=== PATIENT | female | born 1945 | race African-American/Black ===

== ENCOUNTER → 2017-07-27 | Outpatient (CLI) | payer MEDICARE, MEDICAID ==
[~2017-07-27] MED LIST: ASPI81CH7 CHEW; DIGO0.25 PO; FURO1TAB60 PO; KLOR10TA PO; LANO0.2510 PO; LEVEMIR SQ; MAGICADU2 SWISH-SWAL; METF500 PO; METF500T PO; METO-309 PO; MIRTA15 PO; PANT20 PO; PERI8.6T PO; PLAV75TA29 PO; PRAV80TA2 PO; PRIN20TA2 PO; RISP1 PO; RISP2TAB37 PO; SHOWER/TUB CHAIR LG; WALKER ROLLING
[2017-07-27 07:50] LABS: HEMATOCRIT 36.7 % (35.0-46.0); MEAN CELL VOLUME 87.5 FL (80.0-100.0); MEAN CORPUSCULAR HEMOGLOBIN 28.7 PG (27.0-34.0); MEAN CORPUSCULAR HGB CONC 32.8 % (32.0-36.0); PLATELET COUNT 136 TH/MM3 (150-450); RED BLOOD COUNT 4.19 MIL/MM3 (4.00-5.30); RED CELL DISTRIBUTION WIDTH 15.4 % (11.6-17.2); REVIEW FLAG FINAL; WHITE BLOOD COUNT 5.6 TH/MM3 (4.0-11.0)
[2017-07-27 08:15] LABS: HDL CHOLESTEROL 48.2 MG/DL (40.0-60.0); LDL CHOLESTEROL 29 MG/DL (0-99)
[2017-07-27 16:55] LABS: HEMOGLOBIN A1b 2.4 %; HEMOGLOBIN Ao 81.4 %; HEMOGLOBIN LA1C 2.6 %; HEMOGLOBIN P3 4.1 %
== END ==
LOC: CLAB 07:01
PROVIDERS: ATTEND Internal Medicine Hematology & Oncology
DX: E11.8 Type 2 diabetes mellitus with unspecified complications (principal); I42.9 Cardiomyopathy, unspecified; R53.83 Other fatigue
CPT/HCPCS: 36415; 80061; 83036; 85027

== ENCOUNTER 2018-01-04 20:26 | Observation (INO) | payer MEDICARE, OTHER ==
[~2018-01-04] VITALS: Ht 162.6 cm; Wt 88.0 kg
[~2018-01-04 20:26] MED LIST changes: +BLOOD GLUCOSE M1 KIT; +BLOOD GLUCOSE T1 TES; -LANO0.2510 PO; -METF500 PO
[2018-01-04 20:31] VITALS: BP 190/51; PULSE 79; RESP 16; TEMP 98.8; O2SAT 98
[2018-01-04 21:00] VITALS: RESP 16; O2SAT 100
[2018-01-04 21:33] LABS: AUTOMATED NEUTROPHIL # 3.4 TH/MM3 (1.8-7.7); BASOPHIL # 0.1 TH/MM3 (0-0.2); BASOPHIL % 1.2 % (0.0-2.0); EOSINOPHIL # 0.1 TH/MM3 (0-0.4); EOSINOPHIL % 1.8 % (0.0-4.0); LYMPH % 37.4 % (9.0-44.0); LYMPHOCYTE # 2.4 TH/MM3 (1.0-4.8); MEAN CELL VOLUME 87.8 FL (80.0-100.0); MEAN CORPUSCULAR HEMOGLOBIN 28.3 PG (27.0-34.0); MEAN CORPUSCULAR HGB CONC 32.2 % (32.0-36.0); MEAN PLATELET VOLUME 10.1 FL (7.0-11.0); MONOCYTE # 0.5 TH/MM3 (0-0.9); NEUT % 52.6 % (16.0-70.0); PLATELET COUNT 157 TH/MM3 (150-450); RED BLOOD COUNT 3.88 MIL/MM3 (4.00-5.30); RED CELL DISTRIBUTION WIDTH 15.7 % (11.6-17.2); WHITE BLOOD COUNT 6.5 TH/MM3 (4.0-11.0)
--- NOTE | 2018-01-04 21:35 | RADRPT ---
EXAM DATE/TIME: 01/04/2018 21:19 [facility] COMPARISON: CT BRAIN W/O CONTRAST, May 13, 2016, 13:31. INDICATIONS : Cephalgia. RADIATION DOSE: 63.64 CTDIvol (mGy) MEDICAL HISTORY : Stroke. SURGICAL HISTORY : None. ENCOUNTER: Initial ACUITY: 1 day PAIN SCALE: 3/10 LOCATION: cranial TECHNIQUE: Multiple contiguous axial images were obtained of the head. Using automated exposure control and adj ustment of the mA and/or kV according to patient size, radiation dose was kept as low as reasonably a chievable to obtain optimal diagnostic quality images. DICOM format image data is available electro nically for review and comparison. FINDINGS: CEREBRUM: The ventricles are normal for age. No evidence of midline shift, mass lesion, hemorrhage or acute in farction. No change focal cortical calcification right high parietal lobe. No extra-axial fluid magy ections are seen. POSTERIOR FOSSA: The cerebellum and brainstem are intact. The 4th ventricle is midline. The cerebellopontine angle i s unremarkable. EXTRACRANIAL: Near-complete opacification of the visualized right maxillary sinus, not new. SKULL: The calvaria is intact. No evidence of skull fracture. CONCLUSION: No acute intracranial abnormality demonstrated. Persistent or recurrent right maxillary sinus disease . Jake Gomez MD on January 04, 2018 at 21:32 Board Certified Radiologist. This report was verified electronically.
[2018-01-04 21:45] LABS: PROTHROMBIN TIME - PATIENT 10.1 SEC (9.8-11.6)
--- NOTE | 2018-01-04 21:59 | PD ---
HPI Chief Complaint: Abdominal Pain Time Seen by Provider: 20:47 Travel History International Travel<30 days: No Contact w/Intl Traveler<30days: No Traveled to known affect area: No History of Present Illness HPI 72-year-old female that presents to the ED for evaluation of abdominal pain, right leg pain. Patient has been following her doctor secondary to loss of weight without trying. She apparently has lost about 70 pounds without trying. Unclear etiology as patient herself is a poor historian and per family she never complains of anything. Per family she did had a fall about a week ago and landed on her right hip. She has been having pain since which has been able to ambulate with some limp. She also has been complaining apparently for about 2 weeks of abdominal discomfort. She went to see her doctor who did a CT because of the loss of weight to make sure patient did not have a tumor going on and apparently the CT scan show gallbladder stones on the gallbladder. She states that currently she has no abdominal pain but the pain comes and goes and gets worse when she eats. She denies any urinary or bowel movement issues. She denies any pain at this time. Per patient the pain only comes and goes. Per patient becomes a sharp pain is 8 out of 10. Pain on the leg is only painful with weightbearing. She apparently has fallen and hit her ahead and she takes blood thinners. Unclear as to when this happened but apparently a week ago possibly a second time during the week. Denies any back pain or neck pain. No headache. No blurred vision or double vision. No other medical issues at this time. Lastly patient also as well as family complaint the patient has been having shortness of breath and exertion and apparently this has been ongoing for some time but has worsened the past couple of weeks. She apparently cannot do most of her daily activities secondary to the shortness of breath. She states that she gets chest pain on exacerbation only on occasion. She apparently has been told she has an enlarged heart which is never had any heart attacks or heart caths in the past. PFSH Past Medical History Hx Anticoagulant Therapy: Yes Arthritis: Yes (KNEE JOINTS) Asthma: No Autoimmune Disease: No Blood Disorders: No Anxiety: No Depression: Yes Heart Rhythm Problems: No High Cholesterol: Yes (TAKES ZOCOR) Chemotherapy: No Chest Pain: No Congestive Heart Failure: No COPD: No Cerebrovascular Accident: Yes (TIA) Coronary Artery Disease: Yes Diabetes: No (See EMR) Diminished Hearing: No Endocrine: No GERD: No Glaucoma: No Genitourinary: No Hepatitis: No Hiatal Hernia: No Hypertension: Yes Immune Disorder: No Kidney Stones: No Musculoskeletal: No Neurologic: No Psychiatric: Yes (history of Major Depression) Reproductive: No Respiratory: No Migraines: No Myocardial Infarction: No Radiation Therapy: No Renal Failure: No Sickle Cell Disease: No Sleep Apnea: No Thyroid Disease: No Ulcer: No Tetanus Vaccination: < 5 Years Influenza Vaccination: No LMP: menapause Menopausal: Yes Tubal Ligation: Yes Past Surgical History Abdominal Surgery: No AICD: No Appendectomy: No Arteriovenous Shunt: No Cardiac Surgery: No Cholecystectomy: No Ear Surgery: No Endocrine Surgery: No Eye Surgery: No Genitourinary Surgery: No Gynecologic Surgery: Yes (TUBAL LIGATION IN 1964) Insulin Pump: No Joint Replacement: No Oral Surgery: Yes (MOUTH SURGERY AT THE AGE OF 18) Pacemaker: No Thoracic Surgery: No Social History Alcohol Use: No Tobacco Use: No Substance Use: No Allergies-Medications (Allergen,Severity, Reaction): Coded Allergies: No Known Allergies (Verified Adverse Reaction, Unknown, 01/04/18) Reported Meds & Prescriptions Reported Meds & Active Scripts Active Blood Glucose Test Strips Strips Strip Ea .ROUTE DIRECTED Digoxin 0.25 Mg Tab 0.25 Mg PO DAILY Aspirin Children's (Aspirin) 81 Mg Chew 81 Mg CHEW DAILY Klor-Con 10 (Potassium Chloride) 10 Meq Tab 10 Meq PO DAILY Prinivil (Lisinopril) 20 Mg Tab 40 Mg PO DAILY Plavix (Clopidogrel Bisulfate) 75 Mg Tab 75 Mg PO DAILY Lopressor (Metoprolol Tartrate) 50 Mg Tab 50 Mg PO BID Levemir Inj (Insulin Detemir) 1,000 unit/ 10 ML Vial 5 Units SQ Q12HR Do not mix with any other Insulin. Lasix (Furosemide) 40 Mg Tab 40 Mg PO BID Pravastatin 80 Mg Tab 80 Mg PO HS Protonix (Pantoprazole Sodium) 20 Mg Tab 20 Mg PO DAILY Magic Mouthwash Adult Liq (Multi-Ingredient Mouthwash/Gargle) 120 Ml Susp 10 Ml SWISH-SWAL ACHS Each 5 mL contains: Nystatin 200,000 units, Diphenhydramine 4.25 mg, Viscous Lidocaine 10 mg, Gross syrup 0.8 mL Risperdal (Risperidone) 2 Mg Tab 2 Mg PO DAILY Blood Glucose Monitoring W/Device (Device) 1 Kit Kit Kit .ROUTE DIRECTED Metformin (Metformin HCl) 500 Mg Tab 1,000 Mg PO BIDPC With meals Digoxin 0.25 Mg Tab 0.25 Mg PO DAILY Katey-Colace (Sennosides-Docusate Sodium) 8.6-50 Mg Tab 1 Tab PO BID PRN Risperdal (Risperidone) 1 Mg Tab 1 Mg PO HS Shower/Tub Chair Lg (Device) Device 1 Ea Walker Rolling (Device) Device 1 Ea Reported Mirtazapine 15 Mg Tab 15 Mg PO HS Review of Systems Except as stated in HPI: all other systems reviewed are Neg Physical Exam Narrative GENERAL: SKIN: Warm and dry. HEAD: Atraumatic. Normocephalic. EYES: Pupils equal and round. No scleral icterus. No injection or drainage. ENT: No nasal bleeding or discharge. Mucous membranes pink and moist. Tongue is midline. No uvula deviation. NECK: Trachea midline. No JVD. CARDIOVASCULAR: Regular rate and rhythm. No murmurs, S3, S4. RESPIRATORY: No accessory muscle use. Clear to auscultation. Breath sounds equal bilaterally. GASTROINTESTINAL: Abdomen soft, non-tender, nondistended. Hepatic and splenic margins not palpable. MUSCULOSKELETAL: Extremities without clubbing, cyanosis, or edema. No obvious deformities. Full range of motion of the upper and lower extremities bilaterally. 2+ pulses bilaterally. NEUROLOGICAL: Awake and alert. No obvious cranial nerve deficits. Motor grossly within normal limits. Five out of 5 muscle strength in the arms and legs. Normal speech. PSYCHIATRIC: Appropriate mood and affect; insight and judgment normal. Data Data Last Documented VS Vital Signs Date Time Temp Pulse Resp B/P (MAP) Pulse Ox O2 Delivery O2 Flow Rate FiO2 01/04/18 21:00 16 100 Room Air 01/04/18 20:31 98.8 79 190/51 (97) Orders Orders Electrocardiogram (01/04/18 20:55) Complete Blood Count With Diff (01/04/18 20:55) Comprehensive Metabolic Panel (01/04/18 20:55) Ckmb (Isoenzyme) Profile (01/04/18 20:55) Troponin I (01/04/18 20:55) B-Type Natriuretic Peptide (01/04/18 20:55) Prothrombin Time / Inr (Pt) (01/04/18 20:55) Act Partial Throm Time (Ptt) (01/04/18 20:55) Lipase (01/04/18 20:55) Urinalysis - C+S If Indicated (01/04/18 20:55) Magnesium (Mg) (01/04/18 20:55) Thyroid Stimulating Hormone (01/04/18 20:55) Chest, Single Ap (01/04/18 20:55) Ct Brain W/O Iv Contrast(Rout) (01/04/18 20:55) Iv Access Insert/Monitor (01/04/18 20:55) Ecg Monitoring (01/04/18 20:55) Oximetry (01/04/18 20:55) Us Abdomen Gallbladder (01/04/18 ) Femur (Ap & Lat/2vws) (01/04/18 ) CKMB (01/04/18 21:00) CKMB% (01/04/18 21:00) Admit Order (Ed Use Only) (01/04/18 23:02) Labs Laboratory Tests Test 01/04/18 21:00 White Blood Count 6.5 TH/MM3 Red Blood Count 3.88 MIL/MM3 Hemoglobin 11.0 GM/DL Hematocrit 34.0 % Mean Corpuscular Volume 87.8 FL Mean Corpuscular Hemoglobin 28.3 PG Mean Corpuscular Hemoglobin Concent 32.2 % Red Cell Distribution Width 15.7 % Platelet Count 157 TH/MM3 Mean Platelet Volume 10.1 FL Neutrophils (%) (Auto) 52.6 % Lymphocytes (%) (Auto) 37.4 % Monocytes (%) (Auto) 7.0 % Eosinophils (%) (Auto) 1.8 % Basophils (%) (Auto) 1.2 % Neutrophils # (Auto) 3.4 TH/MM3 Lymphocytes # (Auto) 2.4 TH/MM3 Monocytes # (Auto) 0.5 TH/MM3 Eosinophils # (Auto) 0.1 TH/MM3 Basophils # (Auto) 0.1 TH/MM3 CBC Comment DIFF FINAL Differential Comment Prothrombin Time 10.1 SEC Prothromb Time International Ratio 1.0 RATIO Activated Partial Thromboplast Time 25.0 SEC Blood Urea Nitrogen 24 MG/DL Creatinine 1.45 MG/DL Random Glucose 179 MG/DL Total Protein 7.0 GM/DL Albumin 3.2 GM/DL Calcium Level 8.5 MG/DL Magnesium Level 1.9 MG/DL Alkaline Phosphatase 65 U/L Aspartate Amino Transf (AST/SGOT) 14 U/L Alanine Aminotransferase (ALT/SGPT) 10 U/L Total Bilirubin 0.4 MG/DL Sodium Level 141 MEQ/L Potassium Level 4.3 MEQ/L Chloride Level 103 MEQ/L Carbon Dioxide Level 26.1 MEQ/L Anion Gap 12 MEQ/L Estimat Glomerular Filtration Rate 43 ML/MIN Total Creatine Kinase 180 U/L Creatine Kinase MB LESS THAN 0.5 NG/ML Troponin I LESS THAN 0.02 NG/ML B-Type Natriuretic Peptide 11 PG/ML Lipase 119 U/L Thyroid Stimulating Hormone 3rd Gen 2.750 uIU/ML MDM Medical Decision Making Medical Screen Exam Complete: Yes Emergency Medical Condition: Yes Medical Record Reviewed: Yes Interpretation(s) CBC & BMP Diagram 01/04/18 21:00 Total Protein 7.0, Albumin 3.2 L, Calcium Level 8.5, Magnesium Level 1.9, Alkaline Phosphatase 65, Aspartate Amino Transf (AST/SGOT) 14 L, Alanine Aminotransferase (ALT/SGPT) 10, Total Bilirubin 0.[address] 01/04/182054 Signed Impressions: Service Date/Time: Thursday, January 04, 2018 21:19 - CONCLUSION: No acute intracranial abnormality demonstrated. Persistent or recurrent right maxillary sinus disease. Jake Gomez MD Chest X-Ray 01/04/182054 Signed Impressions: Service Date/Time: Thursday, January 04, 2018 21:38 - CONCLUSION: No change. No evidence of acute cardiopulmonary disease. Jake Gomez MD Femur X-Ray 01/04/18 0000 Signed Impressions: Service Date/Time: Thursday, January 04, 2018 21:33 - CONCLUSION: Intact right femur. Severe osteoarthritis of the knee. Jake Gomez MD EKG shows sinus rhythm with no sign of acute ischemia or arrythmia read by me and attending. Troponin and CK-MB negative. BNP within normal limits. Differential Diagnosis Acute abdomen versus gallbladder disease versus gallbladder stones versus cholecystitis versus fracture versus contusion versus weakness Narrative Course 72-year-old female that presents to the ED for evaluation of multiple complaints but primarily the epigastric pain as well as right leg pain. Patient was properly examined and was found to have signs and symptoms consistent with appears to be gallbladder disease. Was able to review the CT scan the patient had recently and did show multiple stones in the gallbladder with some thickening of the gallbladder itself. She also had some nonspecific inflammation to the urinary bladder. Patient also complains of feeling short of breath with exertion has been told she has an enlarged heart. At this time I recommend labs and imaging. We will do workup. Labs and imaging were essentially unremarkable. Ultrasound still pending by my attending Dr. Polanco himself looked at the scan and revealed multiple stones with some gallbladder wall thickening. Patient had a CT scan that showed multiple stones already with gallbladder thickening performed less than 2 weeks ago. Accommodation this time is for admission for further evaluation and possible general consult for the gallbladder. Also patient will need a little more of a workup to see what is going on with the weight loss. This was discussed with the family and patient were in agreement with admission for further evaluation. Case discussed with the residents who agreed admission to their team. Diagnosis Primary Impression: Symptomatic cholelithiasis Additional Impression: Abnormal weight loss Admitting Information Admitting Physician Requests: Observation Rodriguez Dominguez Jan 04, 2018 21:59
--- NOTE | 2018-01-04 22:01 | RADRPT ---
EXAM DATE/TIME: 01/04/2018 21:33 [facility] COMPARISON: No previous studies available for comparison. INDICATIONS : Right hip pain. MEDICAL HISTORY : Stroke. SURGICAL HISTORY : None. ENCOUNTER: Initial ACUITY: 2 weeks PAIN SCORE: 5/10 LOCATION: Right femur. FINDINGS: Two view examination of the right femur demonstrates no evidence of fracture or dislocation. Bony mi neralization is normal. The soft tissue structures are intact. Severe 3 compartment osteoarthritis noted at the right knee. CONCLUSION: Intact right femur. Severe osteoarthritis of the knee. Jake Gomez MD on January 04, 2018 at 21:58 Board Certified Radiologist. This report was verified electronically.
--- NOTE | 2018-01-04 22:02 | RADRPT ---
EXAM DATE/TIME: 01/04/2018 21:38 [facility] COMPARISON: CHEST SINGLE AP, May 13, 2016, 13:13. INDICATIONS : Short of breath. MEDICAL HISTORY : Stroke. SURGICAL HISTORY : None. ENCOUNTER: Initial ACUITY: 2 weeks PAIN SCORE: 0/10 LOCATION: Bilateral chest FINDINGS: A single view of the chest demonstrates the lungs to be symmetrically aerated without evidence of mas s, infiltrate or effusion. The cardiomediastinal contours are unremarkable. Osseous structures are intact. CONCLUSION: No change. No evidence of acute cardiopulmonary disease. Jake Gomez MD on January 04, 2018 at 21:59 Board Certified Radiologist. This report was verified electronically.
[2018-01-04 22:12] LABS: ALBUMIN 3.2 GM/DL (3.4-5.0); ALKALINE PHOSPHATASE 65 U/L (45-117); ALT (GPT) 10 U/L (10-53); AST (GOT) 14 U/L (15-37); BICARBONATE 26.1 MEQ/L (21.0-32.0); BLOOD UREA NITROGEN 24 MG/DL (7-18); CALCIUM 8.5 MG/DL (8.5-10.1); CHLORIDE 103 MEQ/L (98-107); CREATININE 1.45 MG/DL (0.50-1.00); GLOMERULAR FILTRATION RATE 43 ML/MIN (>89); GLUCOSE,RANDOM 179 MG/DL (74-106); MAGNESIUM 1.9 MG/DL (1.5-2.5); SODIUM (NA) 141 MEQ/L (136-145); TOTAL BILIRUBIN ADULT 0.4 MG/DL (0.2-1.0); TROPONIN I LESS THAN 0.02 NG/ML (0.02-0.05)
--- NOTE | 2018-01-04 23:16 | RADRPT ---
EXAM DATE/TIME: 01/04/2018 21:52 [facility] COMPARISON: No previous studies available for comparison. INDICATIONS : Right upper quadrant pain. MEDICAL HISTORY : Hypertension. Hyperlipidemia. Type II diabetes. SURGICAL HISTORY : Tubal ligation. ENCOUNTER: Initial ACUITY: 1 month PAIN SCORE: 4/10 LOCATION: Right upper quadrant MEASUREMENTS: LIVER: 23 cm length COMMON DUCT: 7 mm RIGHT KIDNEY: 13.3 x 4.6 x 4.3 cm FINDINGS: LIVER: Echogenic and enlarged without focal lesion or ductal dilatation. Hepatopedal flow main portal vein. COMMON DUCT: No intraluminal mass or stone visualized. GALLBLADDER: Contains multiple stones, demonstrates no wall thickening or pericholecystic fluid. PANCREAS: The visualized portions are within normal limits. RIGHT KIDNEY: No evidence of hydronephrosis, stone, or mass. CONCLUSION: 1. Enlarged echogenic liver which can be seen with mild hepatic steatosis. 2. Extensive cholelithiasis. Waylon Bentley MD on January 04, 2018 at 23:13 Board Certified Radiologist. This report was verified electronically.
[2018-01-04] MEDS ORDERED: ACETAMINOPHEN 325 MG TAB PO PRN (23:45)
[2018-01-04] MEDS ORDERED: ONDANSETRON HCL 4 MG/2 ML VIAL IVP PRN (23:45)
[2018-01-04] MEDS ORDERED: SODIUM CHLORIDE 0.9% FLUSH 10 ML FLUSH IV FLUSH PRN (23:45)
[2018-01-04] MEDS ORDERED: GLUCAGON 1 MG/ML VIAL OTHER PRN (23:45)
[2018-01-04] MEDS ORDERED: DEXTROSE 50% IN WATER 50 ML VIAL(D50) IV PUSH PRN (23:45)
[2018-01-04] MEDS ORDERED: BISACODYL 10 MG SUPP RECTAL PRN (23:45)
[2018-01-04] MEDS ORDERED: MAGNESIUM HYDROXIDE SUSP 30 ML CUP PO PRN (23:45)
[2018-01-04] MEDS ORDERED: KETOROLAC TROMETHAMINE 30 MG/ML (IVP) VIAL IV PUSH PRN ×2 (23:45)
[2018-01-04] MEDS ORDERED: LACTULOSE SYRUP 20 GM/30 ML CUP PO PRN (23:45)
[2018-01-04] MEDS ORDERED: SENNOSIDES 8.6 MG TAB PO PRN (23:45)
--- NOTE | 2018-01-04 23:48 | HHI.HP ---
[facility] Service Family Medicine Primary Care Physician Leticia Fam MD Admission Diagnosis symptomatic cholelithiasis, 70 pound weight loss Diagnoses: International Travel<30 Days: No Contact w/Intl Traveler<30days: No Known Affected Area: No History of Present Illness Ms. Toney is a 72-year-old -[place] female with a past medical history of hypertension, diabetes mellitus presenting with abdominal pain. She states that this started about a month ago. She describes the pain as a dull pain that is periumbilical, comes and goes, sometimes radiates to her back. Nothing makes it worse, is better when she takes her medications (unsure of which ones). Her daughter states that her mother has complained that the pain is also in her pelvic area. Of note, she recently had a CT on 12/28 at [place] that revealed thickening of the bladder wall with distention. Also showed gallstones. Sees Aftab Bliss, RIGOBERTO, who thought she needed to see a urologist. Family states that patient was initially referred to GI due to weight loss. She went from 246 pounds down to 189 unintentionally. She has had decreased appetite and has been eating very little. No fevers or chills, but does experience night sweats. Patient has also been experiencing right thigh pain. Better with heating pad. She recently started walking with a limp. This is been happening for the past 2 -3 days. She fell in her room a few weeks ago, hit the back of her head on the carpet, did not lose consciousness, no bleeding. She did not tell anyone that this occurred until a few days later. Family is unsure of whether this fall is correlated with her current thigh pain. Has been losing balance for a while now. She feels like her right leg is weaker than her left. She stands too long she feels like her leg will give out. She is also been experiencing lightheadedness. Review of Systems Constitutional: COMPLAINS OF: Weight loss, Change in appetite, DENIES: Fever, Chills Eyes: DENIES: Blurred vision Ears, nose, mouth, throat: DENIES: Tinnitus, Vertigo, Throat pain Respiratory: COMPLAINS OF: Shortness of breath (on exertion, from living room to bathroom), DENIES: Cough Cardiovascular: COMPLAINS OF: Palpitations (beating fast sometimes), Dyspnea on Exertion, Lower Extremity Edema, DENIES: Chest pain Gastrointestinal: COMPLAINS OF: Abdominal pain, Constipation, DENIES: Black stools, Bloody stools, Nausea, Vomiting Genitourinary: DENIES: Dysuria Integumentary: DENIES: Rash Neurologic: COMPLAINS OF: Headache, Localized weakness, Paresthesias (feet) Past Family Social History Past Medical History Diabetes Mellitus HTN Depression TIA- plavix and aspirin Enlarged heart Schizoaffective disorder Arrhythmia Enlarged heart Past Surgical History Tubal ligation Reported Medications Reported Meds & Active Scripts Active Blood Glucose Test Strips Strips Strip Ea .ROUTE DIRECTED Digoxin 0.25 Mg Tab 0.25 Mg PO DAILY Aspirin Children's (Aspirin) 81 Mg Chew 81 Mg CHEW DAILY Klor-Con 10 (Potassium Chloride) 10 Meq Tab 10 Meq PO DAILY Prinivil (Lisinopril) 20 Mg Tab 40 Mg PO DAILY Plavix (Clopidogrel Bisulfate) 75 Mg Tab 75 Mg PO DAILY Lopressor (Metoprolol Tartrate) 50 Mg Tab 50 Mg PO BID Levemir Inj (Insulin Detemir) 1,000 unit/ 10 ML Vial 5 Units SQ Q12HR Do not mix with any other Insulin. Lasix (Furosemide) 40 Mg Tab 40 Mg PO BID Pravastatin 80 Mg Tab 80 Mg PO HS Protonix (Pantoprazole Sodium) 20 Mg Tab 20 Mg PO DAILY Magic Mouthwash Adult Liq (Multi-Ingredient Mouthwash/Gargle) 120 Ml Susp 10 Ml SWISH-SWAL ACHS Each 5 mL contains: Nystatin 200,000 units, Diphenhydramine 4.25 mg, Viscous Lidocaine 10 mg, Gross syrup 0.8 mL Risperdal (Risperidone) 2 Mg Tab 2 Mg PO DAILY Blood Glucose Monitoring W/Device (Device) 1 Kit Kit Kit .ROUTE DIRECTED Metformin (Metformin HCl) 500 Mg Tab 1,000 Mg PO BIDPC With meals Digoxin 0.25 Mg Tab 0.25 Mg PO DAILY Katey-Colace (Sennosides-Docusate Sodium) 8.6-50 Mg Tab 1 Tab PO BID PRN Risperdal (Risperidone) 1 Mg Tab 1 Mg PO HS Shower/Tub Chair Lg (Device) Device 1 Ea Walker Rolling (Device) Device 1 Ea Reported Mirtazapine 15 Mg Tab 15 Mg PO HS Allergies: Coded Allergies: No Known Allergies (Verified Adverse Reaction, Unknown, 01/04/18) Family History Mother when she was 6 years old Social History Lives with her daughter Denies alcohol, tobacco, or illicit drug use Physical Exam Vital Signs Vital Signs Date Time Temp Pulse Resp B/P (MAP) Pulse Ox O2 Delivery O2 Flow Rate FiO2 01/04/18 21:00 16 100 Room Air 01/04/18 20:31 98.8 79 16 190/51 (97) 98 Physical Exam GENERAL: This is a well-nourished, well-developed obese -[place] female patient laying in bed, in no apparent distress. SKIN: No rashes, ecchymoses or lesions. Cool and dry. HEAD: Atraumatic. Normocephalic. EYES: Pupils equal round and reactive. Extraocular motions intact. No scleral icterus. No injection or drainage. ENT: Nose without bleeding, purulent drainage or septal hematoma. Throat without erythema, tonsillar hypertrophy or exudate. Uvula midline. Airway patent. Upper dentures, edentulous NECK: Trachea midline. No JVD or lymphadenopathy. Supple, nontender, no meningeal signs. CARDIOVASCULAR: Regular rate and rhythm without murmurs, gallops, or rubs. RESPIRATORY: Clear to auscultation. Breath sounds equal bilaterally. No wheezes , rales, or rhonchi. GASTROINTESTINAL: Abdomen soft, periumbilical tenderness, nondistended. No hepato-splenomegaly, or palpable masses. No guarding. Negative Laurent's sign MUSCULOSKELETAL: Extremities without clubbing, cyanosis, or edema. No joint tenderness, effusion noted. No calf tenderness. Bilateral 1+ pedal edema NEUROLOGICAL: Awake and alert. Motor and sensory grossly within normal limits. Five out of 5 muscle strength in all muscle groups. Normal speech. Right thigh nontender. Laboratory Laboratory Tests Test 01/04/18 21:00 White Blood Count 6.5 Red Blood Count 3.88 Hemoglobin 11.0 Hematocrit 34.0 Mean Corpuscular Volume 87.8 Mean Corpuscular Hemoglobin 28.3 Mean Corpuscular Hemoglobin Concent 32.2 Red Cell Distribution Width 15.7 Platelet Count 157 Mean Platelet Volume 10.1 Neutrophils (%) (Auto) 52.6 Lymphocytes (%) (Auto) 37.4 Monocytes (%) (Auto) 7.0 Eosinophils (%) (Auto) 1.8 Basophils (%) (Auto) 1.2 Neutrophils # (Auto) 3.4 Lymphocytes # (Auto) 2.4 Monocytes # (Auto) 0.5 Eosinophils # (Auto) 0.1 Basophils # (Auto) 0.1 CBC Comment DIFF FINAL Differential Comment Prothrombin Time 10.1 Prothromb Time International Ratio 1.0 Activated Partial Thromboplast Time 25.0 Blood Urea Nitrogen 24 Creatinine 1.45 Random Glucose 179 Total Protein 7.0 Albumin 3.2 Calcium Level 8.5 Magnesium Level 1.9 Alkaline Phosphatase 65 Aspartate Amino Transf (AST/SGOT) 14 Alanine Aminotransferase (ALT/SGPT) 10 Total Bilirubin 0.4 Sodium Level 141 Potassium Level 4.3 Chloride Level 103 Carbon Dioxide Level 26.1 Anion Gap 12 Estimat Glomerular Filtration Rate 43 Total Creatine Kinase 180 Creatine Kinase MB LESS THAN 0.5 Troponin I LESS THAN 0.02 B-Type Natriuretic Peptide 11 Lipase 119 Thyroid Stimulating Hormone 3rd Gen 2.750 Result Diagram: 01/04/18 2100 01/04/18 2100 Imaging Last Impressions Head CT 01/04/182054 Signed Impressions: Service Date/Time: Thursday, January 04, 2018 21:19 - CONCLUSION: No acute intracranial abnormality demonstrated. Persistent or recurrent right maxillary sinus disease. Jake Gomez MD Chest X-Ray 01/04/182054 Signed Impressions: Service Date/Time: Thursday, January 04, 2018 21:38 - CONCLUSION: No change. No evidence of acute cardiopulmonary disease. Jake Gomez MD Gall Bladder Ultrasound 01/04/18 0000 Signed Impressions: Service Date/Time: Thursday, January 04, 2018 21:52 - CONCLUSION: 1. Enlarged echogenic liver which can be seen with mild hepatic steatosis. 2. Extensive cholelithiasis. Waylon Bentley MD Femur X-Ray 01/04/18 0000 Signed Impressions: Service Date/Time: Thursday, January 04, 2018 21:33 - CONCLUSION: Intact right femur. Severe osteoarthritis of the knee. MD Ok Fierroi VTE Risk Assessment Oki VTE Risk Assessment: Mod/High Risk (score >= 2) Caprini Risk Assessment Model Point Value = 1 Point Value = 2 Point Value = 3 Point Value = 5 Age 41-60 Minor surgery BMI > 25 kg/m2 Swollen legs Varicose veins or History of unexplained or recurrent spontaneous Oral contraceptives or hormone replacement Sepsis (< 1 month) Serious lung disease, including pneumonia (< 1 month) Abnormal pulmonary function Acute myocardial infarction Congestive heart failure (< 1 month) History of inflammatory bowel disease Medical patient at bed rest Age 61-74 Arthroscopic surgery Major open surgery (> 45 min) Laparoscopic surgery (> 45 min) Malignancy Confined to bed (> 72 hours) Immobilizing plaster cast Central venous access Age >= 75 History of VTE Family history of VTE Factor V Leiden Prothrombin [id number] Lupus anticoagulant Anticardiolipin antibodies Elevated serum homocysteine Heparin-induced thrombocytopenia Other congenital or acquired thrombophilia Stroke (< 1 month) Elective arthroplasty Hip, pelvis, or leg fracture Acute spinal cord injury (< 1 month) Prophylaxis Regimen Total Risk Factor Score Risk Level Prophylaxis Regimen 0-1 Low Early ambulation 2 Moderate Order ONE of the following: *Sequential Compression Device (SCD) *Heparin 5000 units SQ BID 3-4 Higher Order ONE of the following medications: *Heparin 5000 units SQ TID *Enoxaparin/Lovenox 40 mg SQ daily (WT < 150 kg, CrCl > 30 mL/min) *Enoxaparin/Lovenox 30 mg SQ daily (WT < 150 kg, CrCl > 10-29 mL/min) *Enoxaparin/Lovenox 30 mg SQ BID (WT < 150 kg, CrCl > 30 mL/min) AND/OR *Sequential Compression Device (SCD) 5 or more Highest Order ONE of the following medications: *Heparin 5000 units SQ TID (Preferred with Epidurals) *Enoxaparin/Lovenox 40 mg SQ daily (WT < 150 kg, CrCl > 30 mL/min) *Enoxaparin/Lovenox 30 mg SQ daily (WT < 150 kg, CrCl > 10-29 mL/min) *Enoxaparin/Lovenox 30 mg SQ BID (WT < 150 kg, CrCl > 30 mL/min) AND *Sequential Compression Device (SCD) Assessment and Plan Assessment and Plan 72-year-old -[place] female with hypertension and diabetes presenting with abdominal pain. She will be admitted for observation to our [facility] teaching service. Code Status Full code Discussed Condition With Dr. Barrett Problem List: (1) Cholelithiasis ICD Codes: K80.20 - Calculus of gallbladder without cholecystitis without obstruction Status: Acute Plan: Patient with periumbilical pain for about a month. Gallbladder ultrasound reveals extensive cholelithiasis -Consult general surgery, appreciate recommendations -Patient n.p.o., in case of procedure (2) Abnormal weight loss ICD Codes: R63.4 - Abnormal weight loss Status: Acute Plan: Patient has lost 70 pounds unintentionally. Patient admits to decreased appetite, poor intake, night sweats. CXR on admission shows no evidence of acute cardiopulmonary disease CT abdomen/pelvis done on 12/28 showed a relatively distended gallbladder completely filled with stones and a moderately decompressed bladder with circumferentially wall thickening. No evidence of concerning mass or lymphadenopathy within the abdomen or pelvis. Per [facility] chart review, patient notes that she lost 100 pounds in a year -Last mammogram in 08/2017 was normal -Patient was initially referred to GI for workup. Sees Dr. Bliss. -Last colonoscopy in 2010 Will defer whether patient needs further workup to primary team A urology consult for bladder wall thickening can be considered, but can be done as an outpatient (3) Right thigh pain ICD Codes: M79.651 - Pain in right thigh Status: Acute Plan: Right thigh pain for 2-3 days duration. Right femur x-ray on admission shows intact right femur. Severe osteoarthritis of the knee. Osteoarthritis is likely the main contributing factor to her limp and not being able to bear weight for long on her right leg. -Consult PT (4) Acute kidney injury ICD Codes: N17.9 - Acute kidney failure, unspecified Status: Acute Plan: Upon chart review, last creatinine was 0.97 in 07/2016. BUN: Creatinine ratio is 16. Likely is chronic -IVF, NS at 100 mL's/hour (5) Benign hypertension Status: Chronic Plan: Continue at home medications -lisinopril 40 mg p.o. daily -Furosemide 40 mg p.o. twice daily (6) Diabetes mellitus ICD Codes: E11.9 - Type 2 diabetes mellitus without complications Status: Chronic Plan: Holding at home Levemir and metformin -NovoLog low-dose sliding scale -Hypoglycemia protocol -Bedside Accu-Cheks If current regimen is not adequate can add back Levemir, especially when diet is added (7) Schizoaffective disorder ICD Codes: F25.9 - Schizoaffective disorder, unspecified Status: Chronic Plan: Continue at home medications -Mirtazapine 50 mg p.o. at bedtime -Risperidone 1 mg p.o. twice daily (8) Dyslipidemia Status: Chronic Plan: Continue at home pravastatin 80 mg p.o. at bedtime (9) FEN Status: Acute Plan: Fluids: NS @ 100ml/hr Electrolytes: monitor and replete as needed Nutrition: NPO, in case of procedure DVT Prophylaxis: Early ambulation. bilateral SCDs GI Prophylaxis: Continue at home pantoprazole 20 mg p.o. daily Physician Certification 2 Midnight Certification Type: Admission for Inpatient Services Order for Inpatient Services The services are ordered in accordance with Medicare regulations or non- Medicare payer requirements, as applicable. In the case of services not specified as inpatient-only, they are appropriately provided as inpatient services in accordance with the 2-midnight benchmark. Estimated LOS (days): 2 days is the estimated time the patient will need to remain in the hospital, assuming treatment plan goals are met and no additional complications. Post-Hospital Plan: Home Problem Qualifiers (1) Cholelithiasis: (2) Schizoaffective disorder: Qualified Codes: F25.9 - Schizoaffective disorder, unspecified Mine Tran MD R1 Jan 04, 2018 23:48
[2018-01-05 00:02] VITALS: BP 182/78; PULSE 69; RESP 16; O2SAT 95
[2018-01-05] MEDS ORDERED: MIRTAZAPINE 15 MG TAB PO ONE (00:30)
[2018-01-05] MEDS ORDERED: risperiDONE 1 MG TAB PO ONE (00:30)
[2018-01-05] MEDS ORDERED: METOPROLOL TARTRATE 50 MG TAB PO ONE (00:30)
[2018-01-05] MEDS ORDERED: FUROSEMIDE 40 MG TAB PO ONE (00:30)
[2018-01-05 01:15] VITALS: BP 141/64; PULSE 68; RESP 16; O2SAT 100
[2018-01-05] MEDS: SODIUM CHLOR 0.9% 1000 ML INJ 1,000 ML IV SCH ×2 (05:06→09:36)
[2018-01-05 05:27] LABS: AUTOMATED NEUTROPHIL # 3.6 TH/MM3 (1.8-7.7); BASOPHIL # 0.1 TH/MM3 (0-0.2); BASOPHIL % 1.2 % (0.0-2.0); EOSINOPHIL # 0.2 TH/MM3 (0-0.4); EOSINOPHIL % 2.8 % (0.0-4.0); HEMATOCRIT 33.1 % (35.0-46.0); HEMOGLOBIN 10.7 GM/DL (11.6-15.3); LYMPH % 34.4 % (9.0-44.0); LYMPHOCYTE # 2.3 TH/MM3 (1.0-4.8); MEAN CELL VOLUME 85.9 FL (80.0-100.0); MEAN CORPUSCULAR HEMOGLOBIN 27.7 PG (27.0-34.0); MEAN CORPUSCULAR HGB CONC 32.3 % (32.0-36.0); MEAN PLATELET VOLUME 9.8 FL (7.0-11.0); MONO % 8.1 % (0.0-8.0); MONOCYTE # 0.6 TH/MM3 (0-0.9); NEUT % 53.5 % (16.0-70.0); PLATELET COUNT 147 TH/MM3 (150-450); RED BLOOD COUNT 3.85 MIL/MM3 (4.00-5.30); RED CELL DISTRIBUTION WIDTH 15.7 % (11.6-17.2); WHITE BLOOD COUNT 6.8 TH/MM3 (4.0-11.0)
[2018-01-05 05:46] LABS: ALBUMIN 3.3 GM/DL (3.4-5.0); ALT (GPT) 9 U/L (10-53); AST (GOT) 9 U/L (15-37); BICARBONATE 31.5 MEQ/L (21.0-32.0); BLOOD UREA NITROGEN 21 MG/DL (7-18); CALCIUM 8.7 MG/DL (8.5-10.1); CHLORIDE 104 MEQ/L (98-107); CREATININE 1.16 MG/DL (0.50-1.00); GLOMERULAR FILTRATION RATE 56 ML/MIN (>89); GLUCOSE,RANDOM 142 MG/DL (74-106); SODIUM (NA) 144 MEQ/L (136-145)
[2018-01-05 05:48] LABS: ALKALINE PHOSPHATASE 66 U/L (45-117); TOTAL BILIRUBIN ADULT 0.4 MG/DL (0.2-1.0); TOTAL PROTEIN 7.1 GM/DL (6.4-8.2)
[2018-01-05 06:16] VITALS: BP 131/80; PULSE 65; RESP 20; TEMP 98.6; O2SAT 96
[2018-01-05] MEDS: INSULIN ASPART SUPPLEMENTAL SCALE SQ SCH ×2 (08:00→12:00)
[2018-01-05 08:30] VITALS: BP 162/78; PULSE 64; RESP 18; TEMP 98.8; O2SAT 94
[2018-01-05] MEDS ORDERED: LISINOPRIL 20 MG TAB PO SCH (09:00)
[2018-01-05] MEDS ORDERED: DIGOXIN 0.25 MG TAB PO SCH (09:00)
[2018-01-05] MEDS ORDERED: FUROSEMIDE 40 MG TAB PO SCH (09:00)
[2018-01-05] MEDS ORDERED: DOCUSATE SODIUM 50 MG/SENNA 8.6 MG TAB PO SCH (09:00)
[2018-01-05] MEDS ORDERED: PANTOPRAZOLE SOD 20 MG DELAYED RELEASE TAB PO SCH (09:00)
[2018-01-05] MEDS ORDERED: METOPROLOL TARTRATE 50 MG TAB PO SCH (09:00)
[2018-01-05] MEDS ORDERED: POTASSIUM CHLORIDE 10 MEQ CONTROLLED RELEASE TAB PO SCH (09:00)
[2018-01-05] MEDS ORDERED: risperiDONE 1 MG TAB PO SCH ×3 (09:00→21:00)
[2018-01-05] MEDS ORDERED: CLOPIDOGREL 75 MG TAB PO SCH (09:00)
[2018-01-05] MEDS ORDERED: SODIUM CHLORIDE 0.9% FLUSH 10 ML FLUSH IV FLUSH SCH (09:00)
--- NOTE | 2018-01-05 09:44 | HHI.HP ---
[facility] Service Family Medicine Primary Care Physician Leticia Fam MD Admission Diagnosis symptomatic cholelithiasis, 70 pound weight loss Diagnoses: (1) Cholelithiasis Diagnosis: Principal (2) Abnormal weight loss Diagnosis: Principal (3) Right thigh pain Diagnosis: Principal (4) Acute kidney injury Diagnosis: Principal (5) Benign hypertension Diagnosis: Principal (6) Diabetes mellitus Diagnosis: Principal (7) Schizoaffective disorder Diagnosis: Principal (8) Dyslipidemia Diagnosis: Principal (9) FEN Diagnosis: Principal International Travel<30 Days: No Contact w/Intl Traveler<30days: No Known Affected Area: No History of Present Illness Ms. Toney is a 72-year-old -Sammarinese female with a past medical history of hypertension, diabetes mellitus presenting with abdominal pain. She states that this started about a month ago. She describes the pain as a dull pain that is periumbilical, comes and goes, sometimes radiates to her back. Nothing makes it worse, is better when she takes her medications (unsure of which ones). Her daughter states that her mother has complained that the pain is also in her pelvic area. Of note, she recently had a CT on 12/28 at [facility] that revealed thickening of the bladder wall with distention. Also showed gallstones. Sees RIGOBERTO Zaidi, who thought she needed to see a urologist. Family states that patient was initially referred to GI due to weight loss. She went from 246 pounds down to 189 unintentionally. She has had decreased appetite and has been eating very little. No fevers or chills, but does experience night sweats. Patient has also been experiencing right thigh pain. Better with heating pad. She recently started walking with a limp. This is been happening for the past 2 -3 days. She fell in her room a few weeks ago, hit the back of her head on the carpet, did not lose consciousness, no bleeding. She did not tell anyone that this occurred until a few days later. Family is unsure of whether this fall is correlated with her current thigh pain. Has been losing balance for a while now. She feels like her right leg is weaker than her left. She stands too long she feels like her leg will give out. She is also been experiencing lightheadedness. Met pt and her two daughters in the room with her. They had spoken to the surgeon who wanted to wait 5 days or so until she was off Plavix for that long to reduce the risk of bleeding when she had her cholecystectomy. They wanted to go home and wait the 5 days and come back to [place] for the surgery not [place]. We discussed a walker or other help at home and PT was to evaluate and make recommendations. Ms Toney is able to keep herself hydrated and feels well enough on tylenol to go home. She and her daughter were advised that she should see a Urologist but could do so as an outpt. Her gallstones were the most important thing right now because she is not able to eat well and has the pain. She will get an appt with Urology hopefully in the next few weeks. Review of Systems ROS Limitations: Poor Historian Other Constitutional: COMPLAINS OF: Weight loss, Change in appetite, DENIES: Fever, Chills Eyes: DENIES: Blurred vision Ears, nose, mouth, throat: DENIES: Tinnitus, Vertigo, Throat pain Respiratory: COMPLAINS OF: Shortness of breath (on exertion, from living room to bathroom), DENIES: Cough Cardiovascular: COMPLAINS OF: Palpitations (beating fast sometimes), Dyspnea on Exertion, Lower Extremity Edema, DENIES: Chest pain Gastrointestinal: COMPLAINS OF: Abdominal pain, Constipation, DENIES: Black stools, Bloody stools, Nausea, Vomiting Genitourinary: DENIES: Dysuria Integumentary: DENIES: Rash Neurologic: COMPLAINS OF: Headache, Localized weakness, Paresthesias (feet) Past Family Social History Past Medical History Diabetes Mellitus HTN Depression TIA- plavix and aspirin Enlarged heart Schizoaffective disorder Arrhythmia Enlarged heart Past Surgical History Tubal ligation Allergies: Coded Allergies: No Known Allergies (Verified Adverse Reaction, Unknown, 01/04/18) Family History Mother when she was 6 years old Social History Lives with her daughter Denies alcohol, tobacco, or illicit drug use Physical Exam Vital Signs Vital Signs Date Time Temp Pulse Resp B/P (MAP) Pulse Ox O2 Delivery O2 Flow Rate FiO2 01/05/18 08:30 98.8 64 18 162/78 (106) 94 01/05/18 06:16 98.6 65 20 131/80 (97) 96 01/05/18 05:47 01/05/18 01:15 68 16 141/64 (89) 100 Room Air 01/05/18 00:02 69 16 182/78 (112) 95 Room Air 01/04/18 21:00 16 100 Room Air 01/04/18 20:31 98.8 79 16 190/51 (97) 98 Physical Exam GENERAL: This is a well-nourished, well-developed obese -Sammarinese female patient sitting in bed, in no apparent distress. SKIN: No rashes, ecchymoses or lesions. Cool and dry. HEAD: Atraumatic. Normocephalic. EYES: Pupils equal round and reactive. Extraocular motions intact. No scleral icterus. No injection or drainage. ENT: Nose without bleeding, purulent drainage or septal hematoma. Throat without erythema, tonsillar hypertrophy or exudate. Uvula midline. Airway patent. Upper dentures, edentulous NECK: Trachea midline. No JVD or lymphadenopathy. Supple, nontender, no meningeal signs. CARDIOVASCULAR: Regular rate and rhythm without murmurs, gallops, or rubs. RESPIRATORY: Clear to auscultation. Breath sounds equal bilaterally. No wheezes , rales, or rhonchi. GASTROINTESTINAL: Abdomen soft, periumbilical tenderness, nondistended. No hepato-splenomegaly, or palpable masses. No guarding. Negative Laurent's sign MUSCULOSKELETAL: Extremities without clubbing, cyanosis, or edema. No joint tenderness, effusion noted. No calf tenderness. Bilateral 1+ pedal edema NEUROLOGICAL: Awake and alert. Motor and sensory grossly within normal limits. Five out of 5 muscle strength in all muscle groups. Normal speech. Right thigh nontender. exam of throat done on admission Laboratory Laboratory Tests Test 01/04/18 21:00 01/05/18 05:06 White Blood Count 6.5 6.8 Red Blood Count 3.88 3.85 Hemoglobin 11.0 10.7 Hematocrit 34.0 33.1 Mean Corpuscular Volume 87.8 85.9 Mean Corpuscular Hemoglobin 28.3 27.7 Mean Corpuscular Hemoglobin Concent 32.2 32.3 Red Cell Distribution Width 15.7 15.7 Platelet Count 157 147 Mean Platelet Volume 10.1 9.8 Neutrophils (%) (Auto) 52.6 53.5 Lymphocytes (%) (Auto) 37.4 34.4 Monocytes (%) (Auto) 7.0 8.1 Eosinophils (%) (Auto) 1.8 2.8 Basophils (%) (Auto) 1.2 1.2 Neutrophils # (Auto) 3.4 3.6 Lymphocytes # (Auto) 2.4 2.3 Monocytes # (Auto) 0.5 0.6 Eosinophils # (Auto) 0.1 0.2 Basophils # (Auto) 0.1 0.1 CBC Comment DIFF FINAL DIFF FINAL Differential Comment Prothrombin Time 10.1 Prothromb Time International Ratio 1.0 Activated Partial Thromboplast Time 25.0 Blood Urea Nitrogen 24 21 Creatinine 1.45 1.16 Random Glucose 179 142 Total Protein 7.0 7.1 Albumin 3.2 3.3 Calcium Level 8.5 8.7 Magnesium Level 1.9 Alkaline Phosphatase 65 66 Aspartate Amino Transf (AST/SGOT) 14 9 Alanine Aminotransferase (ALT/SGPT) 10 9 Total Bilirubin 0.4 0.4 Sodium Level 141 144 Potassium Level 4.3 3.6 Chloride Level 103 104 Carbon Dioxide Level 26.1 31.5 Anion Gap 12 9 Estimat Glomerular Filtration Rate 43 56 Total Creatine Kinase 180 Creatine Kinase MB LESS THAN 0.5 Troponin I LESS THAN 0.02 B-Type Natriuretic Peptide 11 Lipase 119 Thyroid Stimulating Hormone 3rd Gen 2.750 Result Diagram: 01/05/18 0506 01/05/18 0506 Imaging Last Impressions Head CT 01/04/182054 Signed Impressions: Service Date/Time: Thursday, January 04, 2018 21:19 - CONCLUSION: No acute intracranial abnormality demonstrated. Persistent or recurrent right maxillary sinus disease. Jake Gomez MD Chest X-Ray 01/04/182054 Signed Impressions: Service Date/Time: Thursday, January 04, 2018 21:38 - CONCLUSION: No change. No evidence of acute cardiopulmonary disease. Jake Gomez MD Gall Bladder Ultrasound 01/04/18 0000 Signed Impressions: Service Date/Time: Thursday, January 04, 2018 21:52 - CONCLUSION: 1. Enlarged echogenic liver which can be seen with mild hepatic steatosis. 2. Extensive cholelithiasis. Waylon Bentley MD Femur X-Ray 01/04/18 0000 Signed Impressions: Service Date/Time: Thursday, January 04, 2018 21:33 - CONCLUSION: Intact right femur. Severe osteoarthritis of the knee. MD Sanket Fierro VTE Risk Assessment Sanket VTE Risk Assessment: Mod/High Risk (score >= 2) Royalrini Risk Assessment Model Point Value = 1 Point Value = 2 Point Value = 3 Point Value = 5 Age 41-60 Minor surgery BMI > 25 kg/m2 Swollen legs Varicose veins or History of unexplained or recurrent spontaneous Oral contraceptives or hormone replacement Sepsis (< 1 month) Serious lung disease, including pneumonia (< 1 month) Abnormal pulmonary function Acute myocardial infarction Congestive heart failure (< 1 month) History of inflammatory bowel disease Medical patient at bed rest Age 61-74 Arthroscopic surgery Major open surgery (> 45 min) Laparoscopic surgery (> 45 min) Malignancy Confined to bed (> 72 hours) Immobilizing plaster cast Central venous access Age >= 75 History of VTE Family history of VTE Factor V Leiden Prothrombin [id number] Lupus anticoagulant Anticardiolipin antibodies Elevated serum homocysteine Heparin-induced thrombocytopenia Other congenital or acquired thrombophilia Stroke (< 1 month) Elective arthroplasty Hip, pelvis, or leg fracture Acute spinal cord injury (< 1 month) Prophylaxis Regimen Total Risk Factor Score Risk Level Prophylaxis Regimen 0-1 Low Early ambulation 2 Moderate Order ONE of the following: *Sequential Compression Device (SCD) *Heparin 5000 units SQ BID 3-4 Higher Order ONE of the following medications: *Heparin 5000 units SQ TID *Enoxaparin/Lovenox 40 mg SQ daily (WT < 150 kg, CrCl > 30 mL/min) *Enoxaparin/Lovenox 30 mg SQ daily (WT < 150 kg, CrCl > 10-29 mL/min) *Enoxaparin/Lovenox 30 mg SQ BID (WT < 150 kg, CrCl > 30 mL/min) AND/OR *Sequential Compression Device (SCD) 5 or more Highest Order ONE of the following medications: *Heparin 5000 units SQ TID (Preferred with Epidurals) *Enoxaparin/Lovenox 40 mg SQ daily (WT < 150 kg, CrCl > 30 mL/min) *Enoxaparin/Lovenox 30 mg SQ daily (WT < 150 kg, CrCl > 10-29 mL/min) *Enoxaparin/Lovenox 30 mg SQ BID (WT < 150 kg, CrCl > 30 mL/min) AND *Sequential Compression Device (SCD) Assessment and Plan Assessment and Plan 72-year-old -Sammarinese female with hypertension and diabetes presenting with abdominal pain. She will be admitted for observation to our [facility] teaching service. she and her daughters wish to go home and return for her surgery Problem List: (1) Cholelithiasis ICD Codes: K80.20 - Calculus of gallbladder without cholecystitis without obstruction Status: Acute Plan: Patient with periumbilical pain for about a month. Gallbladder ultrasound reveals extensive cholelithiasis -Consulted general surgery, appreciate recommendations. she wishes to have surgery here at [place] next week (2) Abnormal weight loss ICD Codes: R63.4 - Abnormal weight loss Status: Acute Plan: Patient has lost 70 pounds unintentionally. Patient admits to decreased appetite, poor intake, night sweats. CXR on admission shows no evidence of acute cardiopulmonary disease CT abdomen/pelvis done on 12/28 showed a relatively distended gallbladder completely filled with stones and a moderately decompressed bladder with circumferentially wall thickening. No evidence of concerning mass or lymphadenopathy within the abdomen or pelvis. Per [facility] chart review, patient notes that she lost 100 pounds in a year -Last mammogram in 08/2017 was normal -Patient was initially referred to GI for workup. Sees Dr. Bliss. -Last colonoscopy in 2010 Will defer whether patient needs further workup to primary team A urology consult for bladder wall thickening can be considered, but can be done as an outpatient she probably has not been eating as well with her gallbladder disease and pain and possible nausea (3) Right thigh pain ICD Codes: M79.651 - Pain in right thigh Status: Acute Plan: Right thigh pain for 2-3 days duration. Right femur x-ray on admission shows intact right femur. Severe osteoarthritis of the knee. Osteoarthritis is likely the main contributing factor to her limp and not being able to bear weight for long on her right leg. -Consulted PT (4) Acute kidney injury ICD Codes: N17.9 - Acute kidney failure, unspecified Status: Acute Plan: Upon chart review, last creatinine was 0.97 in 07/2016. BUN: Creatinine ratio is 16. Likely is chronic -IVF, NS at 100 mL's/hour (5) Benign hypertension Status: Chronic Plan: Continue at home medications -lisinopril 40 mg p.o. daily -Furosemide 40 mg p.o. twice daily (6) Diabetes mellitus ICD Codes: E11.9 - Type 2 diabetes mellitus without complications Status: Chronic Plan: Holding at home Levemir and metformin -NovoLog low-dose sliding scale -Hypoglycemia protocol -Bedside Accu-Cheks If current regimen is not adequate can add back Levemir, especially when diet is added (7) Schizoaffective disorder ICD Codes: F25.9 - Schizoaffective disorder, unspecified Status: Chronic Plan: Continue at home medications -Mirtazapine 50 mg p.o. at bedtime -Risperidone 1 mg p.o. twice daily (8) Dyslipidemia Status: Chronic Plan: Continue at home pravastatin 80 mg p.o. at bedtime (9) FEN Status: Acute Plan: Fluids: NS @ 100ml/hr Electrolytes: monitor and replete as needed Nutrition: NPO, in case of procedure on admission DVT Prophylaxis: Early ambulation. bilateral SCDs GI Prophylaxis: Continue at home pantoprazole 20 mg p.o. daily Problem Qualifiers (1) Cholelithiasis: (2) Diabetes mellitus: Qualified Codes: E13.8 - Other specified diabetes mellitus with unspecified complications; Z79.4 - long-term (current) use of insulin (3) Schizoaffective disorder: Qualified Codes: F25.9 - Schizoaffective disorder, unspecified Radha Dudley MD Jan 05, 2018 09:44
[2018-01-05] MEDS: ACETAMINOPHEN 325 MG TAB PO PRN ×2 (12:04→19:06)
--- NOTE | 2018-01-05 14:38 | HHI.DCPOC ---
Discharge Care Plan Diagnosis: (1) Cholelithiasis (2) Schizoaffective disorder (3) Assistance needed for mobility (4) Schizoaffective disorder, bipolar type (5) Right thigh pain Goals to Promote Your Health * To prevent worsening of your condition and complications * To maintain your health at the optimal level Directions to Meet Your Goals Take your medications as prescribed Follow your dietary instruction Follow activity as directed Keep your appointments as scheduled Take your immunizations and boosters as scheduled If your symptoms worsen call your PCP, if no PCP go to Urgent Care Center or Emergency Room Smoking is Dangerous to Your Health. Avoid second hand smoke Call the 24-hour hour crisis hotline for domestic abuse at Eitan Saxena MD R3 Jan 05, 2018 14:38
[2018-01-05] MEDS ORDERED: ROLLER WALKER1 MI1 (14:41)
--- NOTE | 2018-01-05 14:47 | HHI.DS ---
Discharge Summary Admission Date Jan 04, 2018 at 23:04 Discharge Date: Jan 05, 2018 Admitting Diagnosis symptomatic cholelithiasis, 70 pound weight loss (1) Cholelithiasis Diagnosis: Principal Plan: Patient with periumbilical pain for about a month. Gallbladder ultrasound reveals extensive cholelithiasis -Consult general surgery, appreciate recommendations -Patient n.p.o., in case of procedure ICD Codes: K80.20 - Calculus of gallbladder without cholecystitis without obstruction Status: Acute (2) Abnormal weight loss Plan: Patient has lost 70 pounds unintentionally. Patient admits to decreased appetite, poor intake, night sweats. CXR on admission shows no evidence of acute cardiopulmonary disease CT abdomen/pelvis done on 12/28 showed a relatively distended gallbladder completely filled with stones and a moderately decompressed bladder with circumferentially wall thickening. No evidence of concerning mass or lymphadenopathy within the abdomen or pelvis. Per [facility] chart review, patient notes that she lost 100 pounds in a year -Last mammogram in 08/2017 was normal -Patient was initially referred to GI for workup. Sees Dr. Bliss. -Last colonoscopy in 2010 Will defer whether patient needs further workup to primary team A urology consult for bladder wall thickening can be considered, but can be done as an outpatient ICD Codes: R63.4 - Abnormal weight loss Status: Acute (3) Right thigh pain Plan: Right thigh pain for 2-3 days duration. Right femur x-ray on admission shows intact right femur. Severe osteoarthritis of the knee. Osteoarthritis is likely the main contributing factor to her limp and not being able to bear weight for long on her right leg. -Consult PT ICD Codes: M79.651 - Pain in right thigh Status: Acute (4) Acute kidney injury Plan: Upon chart review, last creatinine was 0.97 in 07/2016. BUN: Creatinine ratio is 16. Likely is chronic -IVF, NS at 100 mL's/hour ICD Codes: N17.9 - Acute kidney failure, unspecified Status: Acute (5) Benign hypertension Plan: Continue at home medications -lisinopril 40 mg p.o. daily -Furosemide 40 mg p.o. twice daily Status: Chronic (6) Diabetes mellitus Plan: Holding at home Levemir and metformin -NovoLog low-dose sliding scale -Hypoglycemia protocol -Bedside Accu-Cheks If current regimen is not adequate can add back Levemir, especially when diet is added ICD Codes: E11.9 - Type 2 diabetes mellitus without complications Status: Chronic (7) Schizoaffective disorder Plan: Continue at home medications -Mirtazapine 50 mg p.o. at bedtime -Risperidone 1 mg p.o. twice daily ICD Codes: F25.9 - Schizoaffective disorder, unspecified Status: Chronic (8) Dyslipidemia Plan: Continue at home pravastatin 80 mg p.o. at bedtime Status: Chronic (9) FEN Plan: Fluids: NS @ 100ml/hr Electrolytes: monitor and replete as needed Nutrition: NPO, in case of procedure DVT Prophylaxis: Early ambulation. bilateral SCDs GI Prophylaxis: Continue at home pantoprazole 20 mg p.o. daily Status: Acute Brief History Ms. Toney is a 72-year-old -[place]uv[place] female with a past medical history of hypertension, diabetes mellitus presenting with abdominal pain. She states that this started about a month ago. She describes the pain as a dull pain that is periumbilical, comes and goes, sometimes radiates to her back. Nothing makes it worse, is better when she takes her medications (unsure of which ones). Her daughter states that her mother has complained that the pain is also in her pelvic area. Of note, she recently had a CT on 12/28 at [place] that revealed thickening of the bladder wall with distention. Also showed gallstones. Sees Aftab Bliss, RIGOBERTO, who thought she needed to see a urologist. Family states that patient was initially referred to GI due to weight loss. She went from 246 pounds down to 189 unintentionally. She has had decreased appetite and has been eating very little. No fevers or chills, but does experience night sweats. Patient has also been experiencing right thigh pain. Better with heating pad. She recently started walking with a limp. This is been happening for the past 2 -3 days. She fell in her room a few weeks ago, hit the back of her head on the carpet, did not lose consciousness, no bleeding. She did not tell anyone that this occurred until a few days later. Family is unsure of whether this fall is correlated with her current thigh pain. Has been losing balance for a while now. She feels like her right leg is weaker than her left. She stands too long she feels like her leg will give out. She is also been experiencing lightheadedness. CBC/BMP: 01/05/18 0506 01/05/18 0506 Significant Findings Laboratory Tests Test 01/04/18 21:00 01/05/18 05:06 Red Blood Count 3.88 MIL/MM3 (4.00-5.30) 3.85 MIL/MM3 (4.00-5.30) Hemoglobin 11.0 GM/DL (11.6-15.3) 10.7 GM/DL (11.6-15.3) Hematocrit 34.0 % (35.0-46.0) 33.1 % (35.0-46.0) Blood Urea Nitrogen 24 MG/DL (7-18) 21 MG/DL (7-18) Creatinine 1.45 MG/DL (0.50-1.00) 1.16 MG/DL (0.50-1.00) Random Glucose 179 MG/DL (74-106) 142 MG/DL (74-106) Albumin 3.2 GM/DL (3.4-5.0) 3.3 GM/DL (3.4-5.0) Aspartate Amino Transf (AST/SGOT) 14 U/L (15-37) 9 U/L (15-37) Estimat Glomerular Filtration Rate 43 ML/MIN (>89) 56 ML/MIN (>89) Creatine Kinase MB LESS THAN 0.5 NG/ML Troponin I LESS THAN 0.02 NG/ML Platelet Count 147 TH/MM3 (150-450) Monocytes (%) (Auto) 8.1 % (0.0-8.0) Alanine Aminotransferase (ALT/SGPT) 9 U/L (10-53) Hospital Course Pt was admitted due to abdominal pain due to cholelithiasis. Pt was seen and evaluated by general surgery, Dr. Blair, and informed that she would have to be off of anticoagulation for a total of 5 days prior to surgery. Pt and her family would prefer to wait at home as pt is medically stable and her family will participate fully in her care. She will be discharged home with a walker to assist with ambulation. Dr. Blair and his office will make arrangements for her to return to [place] for surgery. Pt and Family would prefer to not have surgery at [place]. Pt Condition on Discharge: Stable Discharge Disposition: Discharge Home Eitan Saxena MD R3 Jan 05, 2018 14:47
[2018-01-05] MEDS ORDERED: ADJUSTABLE COMM1 MIS (15:07)
--- NOTE | 2018-01-05 15:27 | PD.CONS ---
cc: Rosalia Livingston MD HPI Service General Surgery Consult Requested By Dr. Tran with Family Medicine Residency Reason for Consult Symptomatic cholelithiasis Primary Care Physician Leticia Fam MD History of Present Illness This is a 72 year old female with a past medical history of hypertension, diabetes mellitus, depression, TIA on Plavix and aspirin and schizoaffective disorder. The patient comes to the ED with complains of abdominal pain for about one month. She reports the pain is dull and constant; it radiates to her back. The patients last took her Plavix yesterday. She reports no associated nausea or vomiting. The patient has had about and 80 pound unintentionally weight loss over the last year or so. She was being worked up by Dr. Bliss. She is scheduled for an EDG/Colonoscopy on February 09. She had an outpatient CT abdomen/pelvis at [facility] which showed a thickened bladder wall per reports. She was referred to a Urologist has an outpatient. A ultrasound of the gallbladder which shows extensive cholelithiasis. She has a normal WBC. Her liver enzymes and lipase are normal. A General Surgery consultation has been requested. Review of Systems Constitutional: COMPLAINS OF: Fatigue, Weight loss, Change in appetite Endocrine: DENIES: Polydipsia, Polyuria, Polyphagia Eyes: DENIES: Diplopia, Eye inflammation Ears, nose, mouth, throat: DENIES: Hearing loss Respiratory: DENIES: Cough Cardiovascular: DENIES: Chest pain Gastrointestinal: COMPLAINS OF: Abdominal pain, DENIES: Constipation, Diarrhea , Nausea, Vomiting Genitourinary: DENIES: Urinary frequency Musculoskeletal: COMPLAINS OF: Muscle aches (RIGHT thigh pain ), DENIES: Joint pain Integumentary: DENIES: Abnormal pigmentation Hematologic/lymphatic: DENIES: Bruising Immunologic/allergic: DENIES: Eczema Neurologic: DENIES: Headache, Localized weakness Psychiatric: DENIES: Confusion, Mood changes, Depression Past Family Social History Past Medical History Hypertension Diabetes mellitus Depression TIA--On Plavix and aspirin Schizoaffective disorder Past Surgical History Tubal ligation Reported Medications List is extensive but please note the patient is on Plavix and aspirin Allergies: Coded Allergies: No Known Allergies (Verified Adverse Reaction, Unknown, 01/04/18) Active Ordered Medications Current Medications Medications (Trade) Dose Ordered Sig/Maritza Route Start Time Stop Time Status Last Admin Sodium Chloride 1,000 ml @ 100 mls/hr Q10H IV 01/04/18 23:36 01/05/18 05:06 (NS Flush) 2 ml UNSCH PRN IV FLUSH 01/04/18 23:45 (NS Flush) 2 ml BID IV FLUSH 01/05/18 09:00 01/05/18 11:16 (Tylenol) 650 mg Q4H PRN PO 01/04/18 23:45 01/05/18 02:27 (Zofran Inj) 4 mg Q6H PRN IVP 01/04/18 23:45 (Tylenol) 650 mg Q6H PRN PO 01/04/18 23:45 01/05/18 12:04 (Toradol Inj) 15 mg Q6H PRN IV PUSH 01/04/18 23:45 01/09/18 23:44 (Toradol Inj) 30 mg Q6H PRN IV PUSH 01/04/18 23:45 01/09/18 23:44 (Katey-Colace) 1 tab BID PO 01/05/18 09:00 01/05/18 11:14 (Milk Of Magnesia Liq) 30 ml Q12H PRN PO 01/04/18 23:45 (Senokot) 17.2 mg Q12H PRN PO 01/04/18 23:45 (Dulcolax Supp) 10 mg DAILY PRN RECTAL 01/04/18 23:45 (Lactulose Liq) 30 ml DAILY PRN PO 01/04/18 23:45 (Plavix) 75 mg DAILY PO 01/05/18 09:00 Future Hold (Lanoxin) 0.25 mg DAILY PO 01/05/18 09:00 01/05/18 11:24 (Lasix) 40 mg BID PO 01/05/18 09:00 01/05/18 11:14 (Prinivil) 40 mg DAILY PO 01/05/18 09:00 01/05/18 11:13 (Lopressor) 50 mg BID PO 01/05/18 09:00 01/05/18 11:15 (Remeron) 15 mg HS PO 01/05/18 21:00 (Protonix) 20 mg DAILY PO 01/05/18 09:00 01/05/18 11:14 (KCl) 10 meq DAILY PO 01/05/18 09:00 01/05/18 11:14 (Pravachol) 80 mg HS PO 01/05/18 21:00 (D50w (Vial) Inj) 50 ml UNSCH PRN IV PUSH 01/04/18 23:45 (Glucagon Inj) 1 mg UNSCH PRN OTHER 01/04/18 23:45 (NovoLOG SUPPLEMENTAL SCALE) 1 ACHS SLIDING SCALE SQ 01/05/18 08:00 (risperDAL) 1 mg BID PO 01/05/18 09:00 01/05/18 11:15 Family History Non contributory Social History Denies tobacco use Denies ETOH use Denies illicit drug use Lives her locally with her daughter Sharonad. She does not drive. Physical Exam Vital Signs Vital Signs Date Time Temp Pulse Resp B/P (MAP) Pulse Ox O2 Delivery O2 Flow Rate FiO2 01/05/18 08:30 98.8 64 18 162/78 (106) 94 01/05/18 06:16 98.6 65 20 131/80 (97) 96 01/05/18 05:47 01/05/18 01:15 68 16 141/64 (89) 100 Room Air 01/05/18 00:02 69 16 182/78 (112) 95 Room Air 01/04/18 21:00 16 100 Room Air 01/04/18 20:31 98.8 79 16 190/51 (97) 98 Physical Exam GENERAL: Very pleasant 72 year old female resting in bed in no acute distress. SKIN: Warm and dry. HEAD: Atraumatic. Normocephalic. EYES: Pupils equal and round. No scleral icterus. No injection or drainage. ENT: No nasal bleeding or discharge. Mucous membranes pink and moist. NECK: Trachea midline. CARDIOVASCULAR: Regular rate and rhythm. RESPIRATORY: No accessory muscle use. Clear to auscultation. Breath sounds equal bilaterally. GASTROINTESTINAL: Abdomen soft, obese. Mild RUQ tenderness with palpation. No visible hernias or scars. MUSCULOSKELETAL: Extremities without clubbing, cyanosis, or edema. No obvious deformities. NEUROLOGICAL: Awake and alert. No obvious cranial nerve deficits. Motor grossly within normal limits. Five out of 5 muscle strength in the arms and legs. Normal speech. Some tenderness on RIGHT thigh. No visible signs of trauma or injury. PSYCHIATRIC: Appropriate mood and affect; insight and judgment normal. Laboratory Laboratory Tests Test 01/04/18 21:00 01/05/18 05:06 White Blood Count 6.5 6.8 Red Blood Count 3.88 3.85 Hemoglobin 11.0 10.7 Hematocrit 34.0 33.1 Mean Corpuscular Volume 87.8 85.9 Mean Corpuscular Hemoglobin 28.3 27.7 Mean Corpuscular Hemoglobin Concent 32.2 32.3 Red Cell Distribution Width 15.7 15.7 Platelet Count 157 147 Mean Platelet Volume 10.1 9.8 Neutrophils (%) (Auto) 52.6 53.5 Lymphocytes (%) (Auto) 37.4 34.4 Monocytes (%) (Auto) 7.0 8.1 Eosinophils (%) (Auto) 1.8 2.8 Basophils (%) (Auto) 1.2 1.2 Neutrophils # (Auto) 3.4 3.6 Lymphocytes # (Auto) 2.4 2.3 Monocytes # (Auto) 0.5 0.6 Eosinophils # (Auto) 0.1 0.2 Basophils # (Auto) 0.1 0.1 CBC Comment DIFF FINAL DIFF FINAL Differential Comment Prothrombin Time 10.1 Prothromb Time International Ratio 1.0 Activated Partial Thromboplast Time 25.0 Blood Urea Nitrogen 24 21 Creatinine 1.45 1.16 Random Glucose 179 142 Total Protein 7.0 7.1 Albumin 3.2 3.3 Calcium Level 8.5 8.7 Magnesium Level 1.9 Alkaline Phosphatase 65 66 Aspartate Amino Transf (AST/SGOT) 14 9 Alanine Aminotransferase (ALT/SGPT) 10 9 Total Bilirubin 0.4 0.4 Sodium Level 141 144 Potassium Level 4.3 3.6 Chloride Level 103 104 Carbon Dioxide Level 26.1 31.5 Anion Gap 12 9 Estimat Glomerular Filtration Rate 43 56 Total Creatine Kinase 180 Creatine Kinase MB LESS THAN 0.5 Troponin I LESS THAN 0.02 B-Type Natriuretic Peptide 11 Lipase 119 Thyroid Stimulating Hormone 3rd Gen 2.750 Result Diagram: 01/05/18 0506 01/05/18 0506 Imaging Last [address] 01/04/182054 Signed Impressions: Service Date/Time: Thursday, January 04, 2018 21:19 - CONCLUSION: No acute intracranial abnormality demonstrated. Persistent or recurrent right maxillary sinus disease. aJke Gomez MD Chest X-Ray 01/04/182054 Signed Impressions: Service Date/Time: Thursday, January 04, 2018 21:38 - CONCLUSION: No change. No evidence of acute cardiopulmonary disease. Jake Gomez MD Gall Bladder Ultrasound 01/04/18 Signed Impressions: Service Date/Time: Thursday, January 04, 2018 21:52 - CONCLUSION: 1. Enlarged echogenic liver which can be seen with mild hepatic steatosis. 2. Extensive cholelithiasis. Waylon Bentley MD Femur X-Ray 01/04/18 Signed Impressions: Service Date/Time: Thursday, January 04, 2018 21:33 - CONCLUSION: Intact right femur. Severe osteoarthritis of the knee. Jake Gomez MD Assessment and Plan Assessment and Plan 72 year old female with symptomatic cholelithiasis -Cannot do laparoscopic cholecystectomy due to Plavix which was last taken yesterday morning -Will start low fat 1800 ADA diet -Okay from General Surgery standpoint to GA home and patient can follow up and arrange outpatient surgery -If patient decided to stay will plan for inpatient laparoscopic cholecystectomy on Tuesday after Plavix has been held for several days -Alisha Mcdonough and Raquel at bedside and agree with plan---They have our office information -Thank you for this consultPT SEEN WITH [employer] WHO DOCUMENTED OUR VISIT. SHE ENTERED ORDERS IN THE EMR UNDER MY DIRECT SUPERVISION. CARE PLAN D/W PT, FAMILY , AND NURSING STAFF BY MYSELF. I CERTIFY I PERSONALLY EXAMINED THE PATIENT IN THEIR ROOM. PATIENT WILL FOLLOW UP IN OFFICE AND WE WILL SCHEDULE OUTPATIENT CHOLECYSTECTOMY ROSALIA LIVINGSTON MD FACS Discussed Condition With Dr. Livingston Ms. Toney + daughters Sharonda and Raquel at beside [place] [employer] Jan 05, 2018 15:27 Rosalia Livingston MD Jan 06, 2018 09:47
--- NOTE | 2018-01-05 16:31 | EKG ---
Date Performed: 01/04/2018 Time Performed: 21:12:17 PTAGE: 72 years EKG: Sinus rhythm NONSPECIFIC ST & T-WAVE ABNORMALITY BORDERLINE ECG PREVIOUS TRACING : 08/09/2016 11.27 Since the previous tracing, no significant change noted DOCTOR: Dhaval Walters Interpretating Date/Time 01/05/2018 16:27:53
[2018-01-05 16:34] VITALS: O2SAT 96
[2018-01-05 18:26] VITALS: BP 135/64; PULSE 70; RESP 18; TEMP 98.6; O2SAT 96
[2018-01-05] MEDS ORDERED: MIRTAZAPINE 15 MG TAB PO SCH (21:00)
[2018-01-05] MEDS ORDERED: PRAVASTATIN SOD 80 MG TAB PO SCH (21:00)
[2018-01-17] MEDS ORDERED: CLOP75TA PO (15:16)
[2018-01-17] MEDS ORDERED: SENN8.6T36 PO (15:16)
== END 2018-01-05 19:15 | disposition home or self-care (01) ==
LOC: NEPE 20:26 → NEDA 23:04 → NEDH 01-05 03:25 → HCIN 01-05 05:40
PROVIDERS: ADMIT Family Medicine; ATTEND Family Medicine
DX: K80.20 Calculus of gallbladder without cholecystitis without obstruction (principal); N17.9 Acute kidney failure, unspecified; I11.9 Hypertensive heart disease without heart failure; I25.10 Atherosclerotic heart disease of native coronary artery without angina pectoris; E78.5 Hyperlipidemia, unspecified; E11.9 Type 2 diabetes mellitus without complications; E78.00 Pure hypercholesterolemia, unspecified; R07.9 Chest pain, unspecified; F25.0 Schizoaffective disorder, bipolar type; M17.10 Unilateral primary osteoarthritis, unspecified knee; M79.651 Pain in right thigh; R63.4 Abnormal weight loss; Z79.4 Long term (current) use of insulin; Z79.899 Other long term (current) drug therapy; Z86.73 Personal history of transient ischemic attack (TIA), and cerebral infarction without residual deficits; W19.XXXA Unspecified fall, initial encounter
CPT/HCPCS: 70450; 71045; 73552; 76705; 80053; 82550; 82552; 82948; 83690; 83735; 83880; 84443; 84484; 85025; 85610; 85730; 93005; 97162; 99285; G0378; G8987; G8988; J7030

== ENCOUNTER → 2018-01-12 | Outpatient (CLI) | payer MEDICARE, OTHER ==
[~2018-01-12] MED LIST changes: +ADJUSTABLE COMM1 MIS; -ASPI81CH7 CHEW; +CLOP75TA PO; +COMMODE 3-IN-11 MIS; +HYDR-3516 PO; -PLAV75TA29 PO; +ROLLER WALKER1 MI1; +SENN8.6T36 PO
[2018-01-12 09:02] LABS: ALBUMIN 3.6 GM/DL (3.4-5.0); ALT (GPT) 9 U/L (10-53); AST (GOT) 8 U/L (15-37); BICARBONATE 32.7 MEQ/L (21.0-32.0); BLOOD UREA NITROGEN 11 MG/DL (7-18); CALCIUM 8.8 MG/DL (8.5-10.1); CHLORIDE 104 MEQ/L (98-107); CHOLESTEROL 114 MG/DL (120-200); CREATININE 1.11 MG/DL (0.50-1.00); GLOMERULAR FILTRATION RATE 58 ML/MIN (>89); GLUCOSE,FASTING 138 MG/DL (74-99); SODIUM (NA) 143 MEQ/L (136-145); TRIGLYCERIDES 160 MG/DL (42-150)
[2018-01-12 09:05] LABS: ALKALINE PHOSPHATASE 70 U/L (45-117); CHOLESTEROL/ HDL RATIO 2.34 RATIO; HDL CHOLESTEROL 48.7 MG/DL (40.0-60.0); LDL CHOLESTEROL 33 MG/DL (0-99); TOTAL BILIRUBIN ADULT 0.5 MG/DL (0.2-1.0); TOTAL PROTEIN 7.4 GM/DL (6.4-8.2)
[2018-01-12 12:19] LABS: HEMOGLOBIN A1C 6.7 % (4.3-6.0)
== END ==
LOC: CLAB 08:10
PROVIDERS: ATTEND Family Medicine
DX: E87.6 Hypokalemia (principal); E11.9 Type 2 diabetes mellitus without complications
CPT/HCPCS: 36415; 80053; 80061; 83036

== ENCOUNTER 2018-01-18 07:34 | Observation (INO) | payer MEDICARE, OTHER ==
[~2018-01-18] VITALS: Ht 162.6 cm; Wt 99.8 kg
[2018-01-18] VITALS (7 sets, daily range): BP systolic 150–161; BP diastolic 73–85; PULSE 66–86; RESP 16–21; TEMP 97.4–98.8; O2SAT 96–99
[~2018-01-18 07:34] MED LIST changes: -ADJUSTABLE COMM1 MIS; -COMMODE 3-IN-11 MIS; -HYDR-3516 PO; -MAGICADU2 SWISH-SWAL; -PERI8.6T PO; -SENN8.6T36 PO; -SHOWER/TUB CHAIR LG; -WALKER ROLLING
[2018-01-18] MEDS ORDERED: ceFAZolin 2 GM PREMIX 50 ML ONE (08:21)
[2018-01-18] MEDS ORDERED: metroNIDAZOLE 500 MG INJ 100 ML IV ONE (08:21)
[2018-01-18] MEDS ORDERED: ACETAMINOPHEN 1000 MG/100 ML 100 ML IV ONE (08:21)
[2018-01-18] MEDS ORDERED: ceFAZolin 2 GM/DEX PREMIX 50 ML IV SCH (09:00)
[2018-01-18] MEDS ORDERED: ceFAZolin 2 GM in NS 100 ML IV ONE (09:00)
[2018-01-18] MEDS ORDERED: LACTATED RINGER'S 1000 ML IV PRN (09:15)
[2018-01-18] MEDS ORDERED: METRONIDAZOLE 500 MG/100 ML ISONTONIC SOLN IV SCH (09:15)
[2018-01-18] MEDS ORDERED: ACETAMINOPHEN 1000 MG/100 ML 100 ML IV SCH (09:15)
[2018-01-18] MEDS ORDERED: CHLORHEXIDINE GLUCONATE 2 % 1 PACK (2 CLOTHS) TOPICAL PRN (09:15)
[2018-01-18] MEDS ORDERED: METOPROLOL TARTRATE 25 MG TAB PO PRN (09:15)
[2018-01-18] MEDS ORDERED: SODIUM CHLORID 0.9% 500 ML IV PRN (09:15)
[2018-01-18] MEDS ORDERED: POVIDONE IODINE 5% (ANTISEPSIS KIT) 4 APPLICATIONS EACH NARE PRN (09:15)
[2018-01-18] MEDS ORDERED: BUPIVACAINE/EPINEPHRINE 0.25% PF 10 ML VIAL INFIL ONE (09:41)
[2018-01-18] MEDS ORDERED: BUPIVACAINE/EPINEPHRINE 0.5% PF 10 ML VIAL ONE (10:25)
[2018-01-18] MEDS ORDERED: diphenhydrAMINE HCL 25 MG CAP PO PRN (10:45)
[2018-01-18] MEDS ORDERED: ONDANSETRON HCL 4 MG/2 ML VIAL IV PUSH PRN (10:45)
[2018-01-18] MEDS ORDERED: Post-op Orders (for Pharmacy) XX ONE (10:45)
[2018-01-18] MEDS ORDERED: ACETAMINOPHEN/HYDROcodone 325 MG/5 MG TAB PO PRN (10:45)
[2018-01-18] MEDS ORDERED: MORPHINE SULFATE 8 MG/ML INJ IV PUSH PRN (10:45)
[2018-01-18] MEDS ORDERED: NALOXONE HCL 0.4 MG/ML AMP IV PUSH PRN (10:45)
[2018-01-18] MEDS ORDERED: DO NOT ADM ANY ANTICOAGULANT DRUGS PRN (11:02)
--- NOTE | 2018-01-18 11:06 | PD.CONS ---
History of Present Illness Service Medicine Consult Requested By Dr. Blair Reason for Consult Medical management, Diabetes Primary Care Physician Leticia Fam MD Diagnoses: History of Present Illness Pt is a 73-year-old -Chinese female admitted after laparoscopic cholecystectomy, POD#0, performed due to cholelithiasis. Pt seen in the PACU after surgery. She tolerated the procedure well and there were no complications. She was previously admitted to the hospital on 01/04/18 due to abdominal pain and found to have cholelithiasis. Due to history of TIA she was taking Plavix, which needed to be held prior to surgery. She was discharged and scheduled for surgery at a later date after Plavix had been held. She currently reports that her pain is well controlled and has no additional acute concerns. (Eitan Saxena MD R3) Review of Systems ROS Limitations: Other (s/p surgery seen in PACU) Constitutional: COMPLAINS OF: Weight loss, Change in appetite Eyes: DENIES: Vision loss Respiratory: DENIES: Cough Cardiovascular: DENIES: Chest pain Gastrointestinal: COMPLAINS OF: Abdominal pain, Constipation Genitourinary: DENIES: Dysuria Musculoskeletal: DENIES: Joint pain Hematologic/lymphatic: DENIES: Bruising Neurologic: DENIES: Headache Psychiatric: DENIES: Mood changes (Eitan Saxena MD R3) Past Family Social History Allergies: Coded Allergies: No Known Allergies (Verified Allergy, Unknown, 01/18/18) Past Medical History CHF, last echo done 08/28 with EF of 4050%, grade 1 diastolic dysfunction Essential hypertension Hypokalemia Type 2 diabetes with neuropathy Hyperlipidemia Prior TIA, on Plavix Morbid obesity Depression Schizoaffective disorder Arrhythmia Past Surgical History Tubal ligation Reported Medications Reported Meds & Active Scripts Active Roller Walker (Misc. Devices) 1 Mis Mis Ea .XX NOW Blood Glucose Test Strips Strips Strip Ea .ROUTE DIRECTED Klor-Con 10 (Potassium Chloride) 10 Meq Tab 10 Meq PO DAILY Prinivil (Lisinopril) 20 Mg Tab 40 Mg PO DAILY Lopressor (Metoprolol Tartrate) 50 Mg Tab 50 Mg PO BID Levemir Inj (Insulin Detemir) 1,000 unit/ 10 ML Vial 5 Units SQ Q12HR Do not mix with any other Insulin. Lasix (Furosemide) 40 Mg Tab 40 Mg PO BID Pravastatin 80 Mg Tab 80 Mg PO HS Protonix (Pantoprazole Sodium) 20 Mg Tab 20 Mg PO DAILY Risperdal (Risperidone) 2 Mg Tab 2 Mg PO DAILY Blood Glucose Monitoring W/Device (Device) 1 Kit Kit Kit .ROUTE DIRECTED Digoxin 0.25 Mg Tab 0.25 Mg PO DAILY Risperdal (Risperidone) 1 Mg Tab 1 Mg PO HS Reported Clopidogrel (Clopidogrel Bisulfate) 75 Mg Tab 75 Mg PO DAILY Mirtazapine 15 Mg Tab 15 Mg PO HS Family History Mother when she was 6 years old Social History Lives with her daughter Denies alcohol, tobacco, or illicit drug use (Eitan Saxena MD R3) Physical Exam Vital Signs Vital Signs Date Time Temp Pulse Resp B/P (MAP) Pulse Ox O2 Delivery O2 Flow Rate FiO2 01/18/18 09:00 98.9 61 24 153/82 (105) 96 Physical Exam GENERAL: This is a well-nourished, well-developed patient, in no apparent distress, seen in PACU after surgery. SKIN: No rashes, ecchymoses or lesions. Cool and dry. HEAD: Atraumatic. Normocephalic. No temporal or scalp tenderness. EYES: Extraocular motions intact. No scleral icterus. No injection or drainage. ENT: Nose without bleeding, purulent drainage or septal hematoma. Airway patent. NECK: Trachea midline. No JVD or lymphadenopathy. CARDIOVASCULAR: 2/6 GILLIAN, Regular rate and rhythm without murmurs. RESPIRATORY: Clear to auscultation. Breath sounds equal bilaterally. No wheezes , rales, or rhonchi. GASTROINTESTINAL: Abdomen soft, hypoactive bowel sounds, Several incisions from laparoscopic cholecystectomy above umbilicus and in upper abdomen covered with Steri-Strips,c/d/i. MUSCULOSKELETAL: Extremities without clubbing, cyanosis. Mild lower extremity edema, trace-1+, pt wearing SCDs. NEUROLOGICAL: Sleeping, easy to arouse. Exam limited as pt s/p surgery. Normal speech. (Eitan Saxena MD R3) Assessment and Plan Problem List: (1) Status post laparoscopic cholecystectomy ICD Codes: Z90.49 - Acquired absence of other specified parts of digestive tract Plan: POD #0, tolerated surgery well without complications -General surgery managing -Prior gallbladder ultrasound from 01/04/18 with extensive cholelithiasis (2) History of TIA (transient ischemic attack) ICD Codes: Z86.73 - Personal history of transient ischemic attack (TIA), and cerebral infarction without residual deficits Plan: Pt takes plavix as a home medication due to prior TIA -Resume on POD#1 (3) Schizoaffective disorder, bipolar type ICD Codes: F25.0 - Schizoaffective disorder, bipolar type Status: Acute Plan: Continue at home medications -Mirtazapine 50 mg p.o. at bedtime -Risperidone 1 mg p.o. twice daily (4) Mixed hyperlipidemia ICD Codes: E78.2 - Mixed hyperlipidemia Plan: Continue at home pravastatin 80 mg p.o. at bedtime (5) Benign hypertension Status: Chronic Plan: Continue at home medications -lisinopril 40 mg p.o. daily -Furosemide 40 mg p.o. twice daily (6) CHF (congestive heart failure) ICD Codes: I50.9 - Heart failure, unspecified Plan: Continue home medications, see plan under Benign hypertension (7) Diabetes mellitus Status: Chronic Plan: Holding at home Levemir and metformin -NovoLog low-dose sliding scale -Hypoglycemia protocol -Bedside Accu-Cheks (8) FEN/PPX Plan: Fluids: Maintenance NS, to be stopped once pt resumes diet Electrolytes: Continue to monitor and replete as needed Nutrition: Diabetic diet, advance as tolerated DVT PPX: SCDs, will hold chemoprophylaxis until 24hrs post surgery Assessment and Plan Patient is a 73-year-old female status post laparoscopic cholecystectomy due to chronic cholecystitis, currently stable. Discussed Condition With [facility] Dr. Ordoñez Discharge Planning Anticipate discharge once patient is cleared by general surgery, likely 1-2 days. (Eitan Saxena MD R3) Physician Attestation Patients admission and EMR reviewed Patient interviewed and examtned, with daughter present Case discussed in detail with Dr Saxena Agree with contents of note Stable for discharge See Orders (Isaias Ordoñez MD) Problem Qualifiers (1) Diabetes mellitus: Eitan Saxena MD R3 January 18, 2018 11:06 Isaias Ordoñez MD January 18, 2018 21:41
--- NOTE | 2018-01-18 11:08 | MP ---
cc: Buddy Blair MD DATE OF OPERATION: 01/18/2018 PREOPERATIVE DIAGNOSIS: Chronic cholecystitis. POSTOPERATIVE DIAGNOSIS: Chronic cholecystitis. PROCEDURE PERFORMED: Laparoscopic cholecystectomy. SURGEON: Buddy Blair MD. ANESTHESIA: General endotracheal. COMPLICATIONS: None. INDICATIONS FOR PROCEDURE: Ms. Toney is a very pleasant 73-year-old female who was admitted several weeks ago for a cholecystitis episode. At that time, she was on Plavix. Her pain resolved with antibiotics and pain medicine. Because she was on Plavix, she was discharged home and allowed to followup in the office. The patient was followed up in the office and offered elective cholecystectomy off her Plavix. Risks and benefits of laparoscopic, possible open cholecystectomy was discussed with her and her family and they are agreeable. The patient presents today for the cholecystectomy. DETAILS: The patient was identified, brought to the operating room, placed supine on the operating table. After adequate general endotracheal anesthesia was achieved, the abdomen was prepped and draped in standard surgical fashion. Supraumbilical space was anesthetized with 0.25% Marcaine. Supraumbilical incision was made. Dissection was carried down to the subcutaneous tissue to the midline fascia. The midline fascia was then incised sharply. A finger was then placed in the peritoneal cavity without difficulty. There were a few omental adhesions which were taken down with blunt dissection. The blunt dissecting balloon was inserted and the abdomen was insufflated to 15 mmHg using CO2 gas. A 0-degree laparoscope was inserted. Two 5 mm trocars then placed in the right upper quadrant after anesthetizing the skin and subcutaneous tissue with 0.25% Marcaine. Gallbladder was visualized. Gallbladder was noted to be quite large and completely full of stones. Gallbladder was retracted cephalad. The patient had a very floppy left lobe of the liver which was inhibiting view. We therefore placed a third 5 mm port in the right upper quadrant in order to elevate the left lobe of the liver so we could see the neck of the gallbladder. Once we did this, the neck of the gallbladder was clearly seen. The neck was dissected out. Cystic duct was clearly confirmed in 2 planes and seen entering the neck of the gallbladder. It was clipped twice proximally, once distally and then divided. Gallbladder was then dissected. The cystic artery was then identified. The cystic artery was dissected out and seen entering the neck of the gallbladder. It was clipped twice proximally, once distally and then divided. Gallbladder was then dissected out of the hepatic fossa using electrocautery Bovie. All bleeding points were controlled with electrocautery Bovie. The gallbladder was placed in an Endo Catch bag. Gallbladder was then brought out through the supraumbilical port. We had to enlarge both the fascial incision and the skin incision in order to get the gallbladder out due to its large size. Gallbladder was inspected and found to be quite large completely filled with stones. Clips were in place in the cystic duct stump and there was no evidence of leakage of bile. Gallbladder was sent to pathology for analysis. Next, the abdominal cavity was revisualized. A small amount of bleeding that occurred during the dissection was suctioned out with the suction device. The liver bed was carefully inspected and there was no evidence of bleeding. Clips on the cystic artery and cystic duct were clearly seen. They were intact and there was no evidence of bleeding, no leakage of bile. All trocars were then removed under direct vision. The midline fascia was repaired with 0 Vicryl in a [id number] x 2. Skin was closed with 4-0 Vicryl. The patient tolerated the procedure well, was awaken and brought to recovery in stable condition. Buddy MD JOANNE Brar/LESTER , 10:47 AM , 11:07 AM
[2018-01-18] MEDS: LACTATED RINGER'S 1000 ML INJ 1,000 ML IV SCH ×2 (11:32→20:39)
[2018-01-18] MEDS ORDERED: *MEPERIDINE 25 MG INJ VIAL PERIprocedural Use ONLY ONE (11:38)
[2018-01-18] MEDS ORDERED: LACTATED RINGER'S 1000 ML INJ 1,000 ML IV ONE (12:00)
[2018-01-18] MEDS ORDERED: ePHEDrine/NS 25 MG/5 ML SYRINGE IV ONE (12:00)
[2018-01-18] MEDS ORDERED: DEXTROSE 50% IN WATER 50 ML VIAL(D50) IV PUSH PRN (12:00)
[2018-01-18] MEDS ORDERED: cloNIDine HCL 0.1 MG TAB PO PRN (12:00)
[2018-01-18] MEDS ORDERED: ONDANSETRON HCL 4 MG/2 ML VIAL IV PUSH ONE (12:00)
[2018-01-18] MEDS ORDERED: ROCURONIUM INJ 50 MG/5 ML SYRINGE IV PUSH ONE (12:00)
[2018-01-18] MEDS ORDERED: LIDOCAINE HCL 1% PF 5 ML SYRINGE OTHER ONE (12:00)
[2018-01-18] MEDS ORDERED: PHENYLEPH/NS 1000 MCG/10 ML SYR IV ONE (12:00)
[2018-01-18] MEDS ORDERED: NEOSTIGMINE 5 MG/5 ML SYRINGE IV PUSH ONE (12:00)
[2018-01-18] MEDS ORDERED: GLUCAGON 1 MG/ML VIAL OTHER PRN (12:00)
[2018-01-18] MEDS ORDERED: PROPOFOL 200 MG/20 ML AMP IV ONE (12:00)
[2018-01-18] MEDS ORDERED: GLYCOPYRROLATE 1 MG/5 ML SYRINGE IV PUSH ONE (12:00)
[2018-01-18] MEDS: INSULIN ASPART SUPPLEMENTAL SCALE SQ SCH ×2 (17:00→21:00)
[2018-01-18] MEDS ORDERED: metFORMIN HCL 500 MG TAB PO SCH (18:00)
[2018-01-18] MEDS: FUROSEMIDE 40 MG TAB PO SCH (18:10)
[2018-01-18] MEDS ORDERED: INSULIN DETEMIR 100 UNITS/ML VIAL SQ SCH (21:00)
[2018-01-18] MEDS: risperiDONE 1 MG TAB PO SCH (23:00)
[2018-01-18] MEDS: MIRTAZAPINE 15 MG TAB PO SCH (23:00)
[2018-01-18] MEDS: METOPROLOL TARTRATE 50 MG TAB PO SCH (23:00)
[2018-01-18] MEDS: DOCUSATE SODIUM 100 MG CAP PO SCH (23:00)
[2018-01-18] MEDS: PRAVASTATIN SOD 80 MG TAB PO SCH (23:00)
[2018-01-18] MEDS: ACETAMINOPHEN/HYDROcodone 325 MG/5 MG TAB PO PRN (23:01)
[2018-01-19] VITALS (20 sets, daily range): BP systolic 109–149; BP diastolic 58–76; PULSE 64–90; RESP 12–16; TEMP 98–99.5; O2SAT 92–97
[2018-01-19] MEDS: INSULIN ASPART SUPPLEMENTAL SCALE SQ SCH ×4 (08:00→21:00)
--- NOTE | 2018-01-19 08:50 | HHI.FPPN ---
Subjective Remarks Pt seen and examined this morning. No acute events overnight. Pt reports doing well overall. She denies chest pain, shortness of breath. Her appetite is decreased compared to normal. She endorses mild abdominal pain. -flatus, No BM. She has been urinating well. She denies any additional acute concerns. (Eitan Saxena MD R3) Objective Vitals Vital Signs Date Time Temp Pulse Resp B/P (MAP) Pulse Ox O2 Delivery O2 Flow Rate FiO2 01/19/18 07:35 Room Air 01/19/18 07:35 98.0 77 12 117/60 (79) 95 01/19/18 05:41 98.9 75 16 113/65 (81) 93 01/19/18 04:19 74 01/19/18 02:49 16 01/19/18 00:00 86 01/18/18 23:05 98.8 82 16 155/85 (108) 96 01/18/18 20:00 66 01/18/18 19:41 Nasal Cannula 2.00 01/18/18 18:00 86 01/18/18 17:00 75 01/18/18 15:00 72 01/18/18 15:00 97.4 67 21 150/74 (99) 99 01/18/18 14:00 66 01/18/18 13:00 99 Nasal Cannula 2.00 01/18/18 13:00 97.4 66 16 161/73 (102) 99 01/18/18 13:00 72 01/18/18 12:28 97.5 68 14 152/70 (97) 99 Nasal Cannula 2 01/18/18 12:15 66 17 150/67 (94) 99 Nasal Cannula 2 01/18/18 12:00 62 16 149/50 (83) 99 Nasal Cannula 2 01/18/18 11:45 65 13 148/67 (94) 99 Nasal Cannula 2 01/18/18 11:30 66 15 143/63 (89) 99 Nasal Cannula 2 01/18/18 11:15 68 15 138/62 (87) 100 Nasal Cannula 2 01/18/18 11:00 74 17 140/63 (88) 100 Nasal Cannula 2 01/18/18 10:59 97.5 75 16 135/62 (86) 100 Nasal Cannula 2 01/18/18 09:00 98.9 61 24 153/82 (105) 96 I/O 01/18/18 01/18/18 01/18/18 01/19/18 01/19/18 01/19/18 07:00 15:00 23:00 07:00 15:00 23:00 Intake Total 1190 ml 8 ml Output Total 10 ml Balance 1180 ml 8 ml Intake Oral 8 ml IV Total 90 ml Other 1100 ml Output Estimated Blood Loss 10 ml # Voids 2 (Eitan Saxena MD R3) Objective Remarks GENERAL: This is a well-nourished, well-developed patient, in no apparent distress. SKIN: No rashes, ecchymoses or lesions. Cool and dry. HEAD: Atraumatic. Normocephalic. EYES: Extraocular motions intact. No scleral icterus. No injection or drainage. ENT: Nose without bleeding, purulent drainage or septal hematoma. Airway patent. NECK: Trachea midline. No JVD or lymphadenopathy. CARDIOVASCULAR: 2/6 GILLIAN, Regular rate and rhythm RESPIRATORY: Clear to auscultation. Breath sounds equal bilaterally. No wheezes , rales, or rhonchi. GASTROINTESTINAL: Abdomen soft, hypoactive bowel sounds, Several incisions from laparoscopic cholecystectomy above umbilicus and in upper abdomen covered with Steri-Strips. MUSCULOSKELETAL: Extremities without clubbing, cyanosis. Mild lower extremity edema. NEUROLOGICAL: Awake and alert. (Eitan Saxena MD R3) A/P Attending Attestation Medical rounds performed with Dr Saxena Patient seen and examined Agree with contents of above note See Orders (Isaias Ordoñez MD) Problem List: (1) Status post laparoscopic cholecystectomy ICD Codes: Z90.49 - Acquired absence of other specified parts of digestive tract Plan: Pt doing well POD #1, tolerated surgery,without complications -General surgery managing -Prior gallbladder ultrasound from 01/04/18 with extensive cholelithiasis (2) History of TIA (transient ischemic attack) ICD Codes: Z86.73 - Personal history of transient ischemic attack (TIA), and cerebral infarction without residual deficits Plan: -Resume home plavix (3) Schizoaffective disorder, bipolar type ICD Codes: F25.0 - Schizoaffective disorder, bipolar type Status: Acute Plan: Continue at home medications -Mirtazapine 50 mg p.o. at bedtime -Risperidone 1 mg p.o. twice daily (4) Benign hypertension Status: Chronic Plan: Continue at home medications -lisinopril 40 mg p.o. daily -Furosemide 40 mg p.o. twice daily (5) Diabetes mellitus ICD Codes: E11.9 - Type 2 diabetes mellitus without complications Status: Chronic Plan: Holding at home Levemir and metformin -NovoLog low-dose sliding scale -Hypoglycemia protocol -Bedside Accu-Cheks (6) Mixed hyperlipidemia ICD Codes: E78.2 - Mixed hyperlipidemia Plan: Continue at home pravastatin 80 mg p.o. at bedtime (7) CHF (congestive heart failure) ICD Codes: I50.9 - Heart failure, unspecified Plan: Continue home medications, see plan under Benign hypertension (8) FEN/PPX Plan: Fluids: Maintenance NS, to be stopped once pt resumes diet Electrolytes: Continue to monitor and replete as needed Nutrition: Diabetic diet, advance as tolerated DVT PPX: SCDs (Eitan Saxena MD R3) Problem Qualifiers (1) Diabetes mellitus: Qualified Codes: E11.42 - Type 2 diabetes mellitus with diabetic polyneuropathy ; Z79.4 - terminal press operator (current) use of insulin Eitan Saxena MD R3 January 19, 2018 08:50 Isaias Ordoñez MD January 19, 2018 13:49
[2018-01-19 08:56] LABS: AUTOMATED NEUTROPHIL # 2.7 TH/MM3 (1.8-7.7); EOSINOPHIL # 0.1 TH/MM3 (0-0.4); EOSINOPHIL % 1.3 % (0.0-4.0); HEMATOCRIT 26.4 % (35.0-46.0); LYMPH % 29.3 % (9.0-44.0); LYMPHOCYTE # 1.3 TH/MM3 (1.0-4.8); MEAN CORPUSCULAR HEMOGLOBIN 28.7 PG (27.0-34.0); MEAN CORPUSCULAR HGB CONC 30.2 % (32.0-36.0); MEAN PLATELET VOLUME 9.7 FL (7.0-11.0); MONO % 9.4 % (0.0-8.0); MONOCYTE # 0.4 TH/MM3 (0-0.9); PLATELET COUNT 111 TH/MM3 (150-450); RED BLOOD COUNT 2.78 MIL/MM3 (4.00-5.30); RED CELL DISTRIBUTION WIDTH 16.4 % (11.6-17.2); WHITE BLOOD COUNT 4.5 TH/MM3 (4.0-11.0)
[2018-01-19] MEDS: LACTATED RINGER'S 1000 ML INJ 1,000 ML IV SCH (09:06)
[2018-01-19] MEDS: risperiDONE 1 MG TAB PO SCH ×2 (09:07→20:09)
[2018-01-19] MEDS: CLOPIDOGREL 75 MG TAB PO SCH (09:08)
[2018-01-19] MEDS: DOCUSATE SODIUM 100 MG CAP PO SCH ×2 (09:09→20:09)
[2018-01-19] MEDS: METOPROLOL TARTRATE 50 MG TAB PO SCH ×2 (09:09→20:09)
[2018-01-19] MEDS: DIGOXIN 0.25 MG TAB PO SCH (09:09)
[2018-01-19] MEDS: LISINOPRIL 20 MG TAB PO SCH (09:09)
[2018-01-19] MEDS: POTASSIUM CHLORIDE 10 MEQ CONTROLLED RELEASE TAB PO SCH (09:09)
[2018-01-19] MEDS: PANTOPRAZOLE SOD 20 MG DELAYED RELEASE TAB PO SCH (09:18)
[2018-01-19] MEDS: FUROSEMIDE 40 MG TAB PO SCH ×2 (09:27→18:24)
[2018-01-19 09:33] LABS: ALBUMIN 2.6 GM/DL (3.4-5.0); ALKALINE PHOSPHATASE 56 U/L (45-117); ALT (GPT) 19 U/L (10-53); AST (GOT) 23 U/L (15-37); BICARBONATE 30.5 MEQ/L (21.0-32.0); BLOOD UREA NITROGEN 10 MG/DL (7-18); CALCIUM 7.9 MG/DL (8.5-10.1); CHLORIDE 105 MEQ/L (98-107); CREATININE 1.22 MG/DL (0.50-1.00); GLOMERULAR FILTRATION RATE 52 ML/MIN (>89); SODIUM (NA) 144 MEQ/L (136-145); TOTAL BILIRUBIN ADULT 0.5 MG/DL (0.2-1.0); TOTAL PROTEIN 5.5 GM/DL (6.4-8.2)
[2018-01-19 09:40] LABS: GLUCOSE,RANDOM 486 MG/DL (74-106)
[2018-01-19] MEDS ORDERED: HYDR-3516 PO (11:17)
[2018-01-19] MEDS: ACETAMINOPHEN/HYDROcodone 325 MG/5 MG TAB PO PRN ×2 (11:38→20:10)
--- NOTE | 2018-01-19 15:56 | HHI.DS ---
Discharge Summary Admission Date January 18, 2018 at 10:41 Discharge Date: January 20, 2018 Admitting Diagnosis Brief History This is a 73 year old female s/p laparoscopic cholecystectomy. CBC/BMP: 01/19/18 0840 01/19/18 0840 Significant Findings Laboratory Tests Test 01/19/18 08:40 Red Blood Count 2.78 MIL/MM3 (4.00-5.30) Hemoglobin 8.0 GM/DL (11.6-15.3) Hematocrit 26.4 % (35.0-46.0) Mean Corpuscular Hemoglobin Concent 30.2 % (32.0-36.0) Platelet Count 111 TH/MM3 (150-450) Monocytes (%) (Auto) 9.4 % (0.0-8.0) Creatinine 1.22 MG/DL (0.50-1.00) Random Glucose 486 MG/DL (74-106) Total Protein 5.5 GM/DL (6.4-8.2) Albumin 2.6 GM/DL (3.4-5.0) Calcium Level 7.9 MG/DL (8.5-10.1) Estimat Glomerular Filtration Rate 52 ML/MIN (>89) PE at Discharge Sitting up in the chair Resp: CTAB Cardio: RRR Abd: lap sites c/d/i; minimally tender to palpation Hospital Course This is a 73 year old female POD2 laparoscopic cholecystectomy. The patient's diet was advanced as tolerated. His pain was controlled using oral pain medications. She will follow up in the office. Pt Condition on Discharge: Good Discharge Disposition: Discharge Home Discharge Instructions DIET: Follow Instructions for: As Tolerated, No Restrictions Activities you can perform: See Additionl Instruction Other Activity Instructions: Okay to shower starting tomorrow; pat incisions dry Avoid any heavy pushing pulling or lifting No baths Santa Saleem/Medical Dosimetrist DAMEON January 19, 2018 15:56
[2018-01-19] MEDS: MIRTAZAPINE 15 MG TAB PO SCH (20:09)
[2018-01-19] MEDS: PRAVASTATIN SOD 80 MG TAB PO SCH (20:09)
[2018-01-20] VITALS (11 sets, daily range): BP systolic 128–171; BP diastolic 65–80; PULSE 68–98; RESP 14–18; TEMP 97.7–100.7; O2SAT 92
[2018-01-20] MEDS: ACETAMINOPHEN/HYDROcodone 325 MG/5 MG TAB PO PRN ×2 (01:08→10:18)
--- NOTE | 2018-01-20 07:56 | HHI.FPPN ---
Subjective Remarks Pt seen and examined this morning. Overnight pt had an elevated temperature, with Tmax of 100.7. Pt yesterday with abdominal pain, requiring IV pain medication, had no yet had a bowel movement, +flatus. Due to pain she was not able to eat yesterday, but her appetite improved after IV pain medication. She reports feeling very well this morning. She denies chest pain, shortness of breath. She denies any abdominal pain. She would like to go home. (Eitan Saxena MD R3) Objective Vitals Vital Signs Date Time Temp Pulse Resp B/P (MAP) Pulse Ox O2 Delivery O2 Flow Rate FiO2 01/20/18 04:01 16 01/20/18 03:03 89 01/20/18 00:59 100.7 86 18 171/80 (110) 92 01/20/18 00:13 81 01/19/18 20:30 87 01/19/18 20:04 98.6 90 16 149/76 (100) 92 01/19/18 19:26 Room Air 21 01/19/18 18:00 74 01/19/18 17:00 78 01/19/18 16:11 12 01/19/18 16:00 80 01/19/18 15:43 98.7 72 12 131/66 (87) 94 01/19/18 15:00 67 01/19/18 14:00 65 01/19/18 13:00 70 01/19/18 12:00 70 01/19/18 11:12 99.5 64 14 109/58 (75) 97 01/19/18 11:00 74 01/19/18 10:00 70 01/19/18 09:00 70 01/19/18 08:00 70 I/O 01/19/18 01/19/18 01/19/18 01/20/18 01/20/18 01/20/18 06:59 14:59 22:59 06:59 14:59 22:59 Intake Total 150 ml 960 ml Balance 150 ml 960 ml Intake Oral 960 ml IV Total 150 ml # Voids 2 3 3 (Eitan Saxena MD R3) Result Diagram: 01/19/18 0840 01/19/18 0840 Objective Remarks GENERAL: This is a well-nourished, well-developed patient, in no apparent distress. SKIN: No rashes, ecchymoses or lesions. Cool and dry. HEAD: Atraumatic. Normocephalic. EYES: Extraocular motions intact. No scleral icterus. No injection or drainage. ENT: Nose without bleeding, purulent drainage or septal hematoma. Airway patent. NECK: Trachea midline. No JVD or lymphadenopathy. CARDIOVASCULAR: 2/6 GILLIAN, Regular rate and rhythm RESPIRATORY: Clear to auscultation. Breath sounds equal bilaterally. No wheezes , rales, or rhonchi. GASTROINTESTINAL: Abdomen soft, + bowel sounds, Several incisions from laparoscopic cholecystectomy above umbilicus and in upper abdomen covered with Steri-Strips. MUSCULOSKELETAL: Extremities without clubbing, cyanosis. Mild lower extremity edema. NEUROLOGICAL: Awake and alert. (Eitan Saxena MD R3) A/P Assessment and Plan Pt is a 73 year old female presenting due to cholelithiasis, s/p laparoscopic cholecystectomy, elevated temperature overnight, she reports doing well overall. Discharge Planning Pt has been cleared by surgery. Anticipate discharge after UA and CXR have resulted and pt is afebrile, likely later today. (Eitan Saxena MD R3) Attending Attestation Case discussed in detail with Dr Saxena atient seen and examined Agree with contents of above note See Orders (Isaias Ordoñez MD) Problem List: (1) Status post laparoscopic cholecystectomy ICD Codes: Z90.49 - Acquired absence of other specified parts of digestive tract Plan: Pt doing well POD #2, tolerated surgery,without complications Patient with severe abdominal pain yesterday, now improved. She was noted to have an elevated temperature of 100.7 overnight. UA and chest x-ray ordered to exclude infectious cause a fever. -General surgery cleared patient for discharge. -Prior gallbladder ultrasound from 01/04/18 with extensive cholelithiasis (2) History of TIA (transient ischemic attack) ICD Codes: Z86.73 - Personal history of transient ischemic attack (TIA), and cerebral infarction without residual deficits Plan: -Continue home plavix (3) Schizoaffective disorder, bipolar type ICD Codes: F25.0 - Schizoaffective disorder, bipolar type Status: Acute Plan: Continue at home medications -Mirtazapine 50 mg p.o. at bedtime -Risperidone 1 mg p.o. twice daily (4) Benign essential hypertension ICD Codes: I10 - Benign essential hypertension Status: Chronic Plan: Continue at home medications -lisinopril 40 mg p.o. daily -Furosemide 40 mg p.o. twice daily (5) Diabetes mellitus ICD Codes: E11.9 - Type 2 diabetes mellitus without complications Status: Chronic Plan: Holding at home Levemir and metformin -NovoLog low-dose sliding scale, blood sugars have been labile -Hypoglycemia protocol -Bedside Accu-Cheks (6) Mixed hyperlipidemia ICD Codes: E78.2 - Mixed hyperlipidemia Plan: Continue at home pravastatin 80 mg p.o. at bedtime (7) CHF (congestive heart failure) ICD Codes: I50.9 - Heart failure, unspecified Plan: Continue home medications, see plan under Benign hypertension (8) FEN/PPX Plan: Fluids: Encourage PO intake, none Electrolytes: Continue to monitor and replete as needed Nutrition: Diabetic diet DVT PPX: SCDs (Eitan Saxena MD R3) Problem Qualifiers (1) Diabetes mellitus: Qualified Codes: E11.42 - Type 2 diabetes mellitus with diabetic polyneuropathy ; Z79.4 - correction (current) use of insulin Eitan Saxena MD R3 January 20, 2018 07:56 Isaias Ordoñez MD January 20, 2018 13:54
[2018-01-20] MEDS: INSULIN ASPART SUPPLEMENTAL SCALE SQ SCH ×2 (08:00→12:00)
[2018-01-20] MEDS: risperiDONE 1 MG TAB PO SCH (09:00)
[2018-01-20] MEDS: DIGOXIN 0.25 MG TAB PO SCH (09:55)
[2018-01-20] MEDS: LISINOPRIL 20 MG TAB PO SCH (09:56)
[2018-01-20] MEDS: METOPROLOL TARTRATE 50 MG TAB PO SCH (09:56)
[2018-01-20] MEDS: POTASSIUM CHLORIDE 10 MEQ CONTROLLED RELEASE TAB PO SCH (09:56)
[2018-01-20] MEDS: CLOPIDOGREL 75 MG TAB PO SCH (09:56)
[2018-01-20] MEDS: PANTOPRAZOLE SOD 20 MG DELAYED RELEASE TAB PO SCH (09:56)
[2018-01-20] MEDS: FUROSEMIDE 40 MG TAB PO SCH (09:57)
[2018-01-20] MEDS: DOCUSATE SODIUM 100 MG CAP PO SCH (09:57)
--- NOTE | 2018-01-20 10:43 | HHI.PR ---
Subjective Subjective Notes Resting in chair Daughter Reatha at bedside Objective Vitals/I&O Vital Signs Date Time Temp Pulse Resp B/P (MAP) Pulse Ox O2 Delivery O2 Flow Rate FiO2 01/20/18 04:01 16 01/20/18 03:03 89 01/20/18 00:59 100.7 171/80 (110) 92 01/19/18 19:26 Room Air 21 01/18/18 19:41 2.00 Cardiovascular: Regular Lungs: Clear Abdomen: Other (lap sites c/d/i ) Extremities: No edema A/P Assessment and Plan 73 year old female POD2 lap karishma -Ready to go home today -1800 ADA diet -Pain controlled -Follow up with Dr. Blair January 26 at 3PM Santa Saleem/Retail Performance Specialist ARNP January 20, 2018 10:43
--- NOTE | 2018-01-20 11:36 | RADRPT ---
EXAM DATE/TIME: 01/20/2018 11:10 [place] COMPARISON: No previous studies available for comparison. INDICATIONS : Pneumonia. MEDICAL HISTORY : Stroke. SURGICAL HISTORY : None. ENCOUNTER: Subsequent ACUITY: 1 month PAIN SCORE: 0/10 LOCATION: Bilateral chest FINDINGS: PA and lateral views of the chest demonstrate the lungs to be symmetrically aerated without evidence of mass, infiltrate or effusion. Heart size enlarged. Minimal basilar atelectasis. CONCLUSION: 1. Cardiomegaly with minimal basilar atelectasis. No consolidation or effusion. Joey Ritter MD on January 20, 2018 at 11:30 Board Certified Radiologist. This report was verified electronically.
[2018-01-20 11:41] LABS: AUTOMATED NEUTROPHIL # 4.9 TH/MM3 (1.8-7.7); BASOPHIL # 0.1 TH/MM3 (0-0.2); BASOPHIL % 0.8 % (0.0-2.0); EOSINOPHIL # 0.1 TH/MM3 (0-0.4); EOSINOPHIL % 0.9 % (0.0-4.0); HEMATOCRIT 31.9 % (35.0-46.0); HEMOGLOBIN 10.4 GM/DL (11.6-15.3); LYMPH % 18.5 % (9.0-44.0); LYMPHOCYTE # 1.3 TH/MM3 (1.0-4.8); MEAN CELL VOLUME 86.7 FL (80.0-100.0); MEAN CORPUSCULAR HEMOGLOBIN 28.2 PG (27.0-34.0); MEAN CORPUSCULAR HGB CONC 32.5 % (32.0-36.0); MEAN PLATELET VOLUME 9.9 FL (7.0-11.0); MONO % 11.3 % (0.0-8.0); MONOCYTE # 0.8 TH/MM3 (0-0.9); NEUT % 68.5 % (16.0-70.0); PLATELET COUNT 138 TH/MM3 (150-450); RED BLOOD COUNT 3.68 MIL/MM3 (4.00-5.30); RED CELL DISTRIBUTION WIDTH 15.3 % (11.6-17.2); WHITE BLOOD COUNT 7.1 TH/MM3 (4.0-11.0)
[2018-01-20 11:56] LABS: ALBUMIN 2.9 GM/DL (3.4-5.0); ALKALINE PHOSPHATASE 134 U/L (45-117); ALT (GPT) 120 U/L (10-53); AST (GOT) 110 U/L (15-37); BICARBONATE 31.3 MEQ/L (21.0-32.0); BLOOD UREA NITROGEN 10 MG/DL (7-18); CALCIUM 8.5 MG/DL (8.5-10.1); CHLORIDE 102 MEQ/L (98-107); CREATININE 1.28 MG/DL (0.50-1.00); GLOMERULAR FILTRATION RATE 50 ML/MIN (>89); GLUCOSE,RANDOM 175 MG/DL (74-106); SODIUM (NA) 141 MEQ/L (136-145); TOTAL BILIRUBIN ADULT 0.7 MG/DL (0.2-1.0); TOTAL PROTEIN 6.6 GM/DL (6.4-8.2)
[2018-01-20] MEDS ORDERED: COMMODE 3-IN-11 MIS (12:21)
[2018-01-20 15:56] LABS: BILIRUBIN, URINE NEG (NEG); BLOOD, URINE NEG (NEG); GLUCOSE,URINE NEG (NEG); HYALINE CAST, URINE 5 /lpf (RARE); KETONE, URINE NEG (NEG); NITRITE,URINE NEG (NEG); SQUAMOUS EPITHELIAL CELL URINE 1 /hpf (0-5); URINE COLOR YELLOW (YELLW/STRAW); URINE LEUKOCYTE ESTERASE NEG (NEG)
== END 2018-01-20 17:31 | disposition home or self-care (01) ==
LOC: HSDC 07:34 → HSDI 10:41 → HCIS 12:35
PROVIDERS: ADMIT Family Medicine; ATTEND Family Medicine
DX: K80.10 Calculus of gallbladder with chronic cholecystitis without obstruction (principal); Z79.01 Long term (current) use of anticoagulants; E11.9 Type 2 diabetes mellitus without complications; Z79.4 Long term (current) use of insulin; Z79.899 Other long term (current) drug therapy; K66.0 Peritoneal adhesions (postprocedural) (postinfection); Z86.73 Personal history of transient ischemic attack (TIA), and cerebral infarction without residual deficits; I50.32 Chronic diastolic (congestive) heart failure; I11.0 Hypertensive heart disease with heart failure; E87.6 Hypokalemia; E66.01 Morbid (severe) obesity due to excess calories; I49.9 Cardiac arrhythmia, unspecified; F25.0 Schizoaffective disorder, bipolar type; E78.2 Mixed hyperlipidemia; J98.11 Atelectasis
CPT/HCPCS: 00790; 47562; 71046; 80053; 81001; 82948; 85025; 88304; 94150; 96361; 96372; 96374; 97162; G0378; G8987; G8988; J0131; J0690; J1815; J2175; J2270; J2370; J2405; J2710; J3010; J7120

== ENCOUNTER → 2018-02-28 | Outpatient (CLI) | payer MEDICARE, OTHER ==
[~2018-02-28] VITALS: Ht 162.6 cm; Wt 95.6 kg
[~2018-02-28] MED LIST changes: +ASPI-516 CHEW; +CHLORHEXIDINE GLUCONATE 2 % 1 PACK (2 CLOTHS) TOPICAL PRN; +COMMODE 3-IN-11 MIS; +HYDR-3516 PO; +INSULIN HUMAN REGULAR 1,000 UNITS/10 ML VIAL SQ PRN; +LACTATED RINGER'S 1000 ML IV PRN; +LISI-515 PO; +METOPROLOL TARTRATE 25 MG TAB PO PRN; +POVIDONE IODINE 5% (ANTISEPSIS KIT) 4 APPLICATIONS EACH NARE PRN; +PROPOFOL 200 MG/20 ML AMP IV ONE; +SODIUM CHLORID 0.9% 500 ML IV PRN
--- NOTE | 2018-02-28 12:52 | GIPROC ---
[facility] [address] [place] [facility], [address] EGD PROCEDURE REPORT EXAM DATE: 02/28/2018 PATIENT NAME: Maddy Toney MR #: [id number] BIRTHDATE: 1945 ATTENDING: Alireza Camacho MD ORDER #: [id number] SHELLFISH MEAT SEPARATOR OPERATOR: Aleshia Shaffer STATUS: outpatient INDICATIONS: The patient is a 73 yr old female here for an EGD due to weight loss PROCEDURE PERFORMED: EGD w/ biopsy MEDICATIONS: None and Per Anesthesia. TOPICAL ANESTHETIC: CONSENT: The patient understands the risks and benefits of the procedure and understands that these risks include, but are not limited to: sedation, allergic reaction, infection, perforation and/or bleeding. Alternative means of evaluation and treatment include, among others: physical exam, x-rays, and/or surgical intervention. The patient elects to proceed with this endoscopic procedure. medical equipment was checked for proper function. Hand hygiene and appropriate measures for infection prevention was taken. After the risks, benefits and alternatives of the procedure were thoroughly explained, Informed consent was verified, confirmed and timeout was successfully executed by the treatment team. The patient was anesthetized with topical anesthesia and the Pentax [id number] endoscope was introduced through the mouth and advanced to the second portion of the duodenum. Retroflexed views revealed a hiatal hernia The gastroscope was then slowly withdrawn and removed. ESOPHAGUS: There was LA Class A esophagitis noted. A biopsy was performed using cold forceps. Sample sent for histology. STOMACH: There was erythematous moderate gastritis in the gastric antrum. A biopsy was performed using cold forceps. Sample sent for histology. DUODENUM: The duodenal mucosa appeared normal in the bulb and second portion of the duodenum. ADVERSE EVENTS: There were no complications. IMPRESSIONS: 1. There was LA Class A esophagitis noted; biopsy was performed 2. There was erythematous gastritis in the gastric antrum; biopsy was performed 3. Normal duodenal mucosa in the bulb and second portion of the duodenum 4. Retroflexed views revealed a hiatal hernia RECOMMENDATIONS: 1. Await biopsy results. Biopsy results will not be ready for 7-10 days. If you don't hear from us in two weeks, call our office for biopsy results. 2. Anti-reflux regimen 3. Continue PPI 4. Avoid NSAIDS PATIENT CONDITION: stable DISPOSITION: Home REPEAT EXAM: Return 1 year EGD pending biopsy results Alireza Camacho MD eSigned: Alireza Camacho MD 02/28/2018 12:52 PM cc: PATIENT NAME: Maddy Toney MR#: [id number]
--- NOTE | 2018-02-28 13:05 | GIPROC ---
[facility] [address] [facility]. [facility], [address] COLONOSCOPY PROCEDURE REPORT EXAM DATE: 02/28/2018 PATIENT NAME: Maddy Toney MR #: [id number] BIRTHDATE: 1945 ENDOSCOPIST: Alireza Camacho MD ORDER #: [id number] SOFTWARE DESIGN ANALYST: Aleshia Shaffer STATUS: outpatient INDICATIONS: The patient is a 73 yr old female here for a colonoscopy due to weight loss PROCEDURE PERFORMED: Colonoscopy with biopsy MEDICATIONS: None and Per Anesthesia. PREP QUALITY: The Ruso Bowel Prep Score was Right colon 3, Mid colon 2, and Left colon 3. Total = 8. PREP TYPE:GoLytely ESTIMATED BLOOD LOSS: None CONSENT: The patient understands the risks and benefits of the procedure and understands that these risks include, but are not limited to: sedation, allergic reaction, infection, perforation and/or bleeding. Alternative means of evaluation and treatment include, among others: physical exam, x-rays, and/or surgical intervention. The patient elects to proceed with this endoscopic procedure. medical equipment was checked for proper function. Hand hygiene and appropriate measures for infection prevention was taken. After the risks, benefits and alternatives of the procedure were thoroughly explained, Informed consent was verified, confirmed and timeout was successfully executed by the treatment team. A digital exam revealed external hemorrhoids The Pentax [id number] endoscope was introduced through the anus and advanced to the cecum, which was identified by both the appendix and ileocecal valve. The instrument was then slowly withdrawn as the colon was fully examined. COLON FINDINGS: A polypoid shaped sessile polyp ranging between 3-5mm in size was found in the sigmoid colon. A polypectomy was performed with cold forceps. The resection was complete and the polyp tissue was completely retrieved. Retroflexed views revealed internal hemorrhoids and Retroflexed views revealed medium internal hemorrhoids The scope was then completely withdrawn from the patient and the procedure terminated. PROCEDURE WITHDRAWAL TIME:8minutes ADVERSE EVENTS: There were no complications. IMPRESSIONS: 1. A sessile polyp ranging between 3-5mm in size was found in the sigmoid colon; polypectomy was performed with cold forceps 2. Retroflexed views revealed internal hemorrhoids 3. Retroflexed views revealed medium internal hemorrhoids 4. Revealed external hemorrhoids RECOMMENDATIONS: 1. Await biopsy results. Biopsy results will not be ready for 7-10 days. If you don't hear from us in two weeks, call our office for results. 2. Yearly hemoccult 3. Xray for CT of abdomen with contrast 4. Xray for CT of pelvis with contrast 5. Follow-up: [facility] 2 week(s) RECALL: Return 5 years Colonoscopy, pending biopsy results Alireza Camacho MD eSigned: Alireza Camacho MD 02/28/2018 1:04 PM cc:
[2018-02-28 14:00] VITALS: BP 136/88; PULSE 74; RESP 18; TEMP 97.9; O2SAT 100
== END ==
LOC: HSDC 07:20
PROVIDERS: ATTEND Internal Medicine Gastroenterology
DX: K21.0 Gastro-esophageal reflux disease with esophagitis (principal); K44.9 Diaphragmatic hernia without obstruction or gangrene; K29.50 Unspecified chronic gastritis without bleeding; K31.9 Disease of stomach and duodenum, unspecified; D12.5 Benign neoplasm of sigmoid colon; K64.4 Residual hemorrhoidal skin tags; K64.8 Other hemorrhoids; R63.4 Abnormal weight loss; I11.0 Hypertensive heart disease with heart failure; I50.9 Heart failure, unspecified
CPT/HCPCS: 00813; 43239; 45380; 82948; 88305; 88312; J7120